=== PATIENT | male | born 1985 | race Hispanic/Latino ===

== ENCOUNTER 2016-04-24 18:33 | Emergency (ER) | payer OTHER ==
[~2016-04-24 18:33] MED LIST: AMOX500T2 PO; HYDR-4003 PO; LORA-302 PO; OMEP20TA24 PO; ONDA4TAB9 PO
[2016-04-24 18:39] VITALS: BP 143/118; PULSE 103; RESP 27; O2SAT 99
[2016-04-24 19:09] LABS: EOSINOPHILS % (AUTO) 4.2 % (0-5); MONOCYTES % (AUTO) 7.4 % (4-12); Mean Corpuscular Hemoglobin 27.3 pg (27.0-35.0); Mean Corpuscular Volume 80.7 fL (81-100); NEUTROPHILS % (AUTO) 65.4 % (40-74); Platelet Count 414 bil/L (150-400)
[2016-04-24 19:56] VITALS: BP 114/66; PULSE 64; RESP 15; O2SAT 96
--- NOTE | 2016-04-24 20:13 | ED.REPORT ---
HPI-General Illness Date of Service Apr 24, 2016 ED Provider: Jack Hinds MD Pt is a 30 y.o. male with hx of substance abuse who presents to the ED via EMS for drug overdose. Per EMS pt was found by group home passed out and bobbing his head. EMS administered Narcan en route. Upon arrival to the ED pt was alert and stating "I'm sick make this stop". Upon examination pt endorses to IV meth, heroin, and oxycodone use. He denies any suicidal ideation or intentional overdose. Nursing Notes Stated Complaint: POSSIBLE DRUG USE Chief Complaint: Substance Abuse Nursing Notes Reviewed: Yes Allergies: Coded Allergies: No Known Allergies (Verified Allergy, Unknown, 07/14/15) Scheduled Amoxicillin (Amoxicillin) 500 Mg Tablet 500 MG PO TID Omeprazole Magnesium (Prilosec Otc) 20 Mg Tablet.dr 20 MG PO DAILY Scheduled PRN Hydrocodone-Acetaminophen 5-325 mg (Hydrocodone-Acetaminophen 5-325 mg) 1 Each Tablet 1 TABLET PO Q4H PRN PRN For Pain Lorazepam (Ativan) 0.5 Mg Tablet 0.5 MG PO TID PRN PRN For Anxiety Ondansetron ODT (Zofran ODT) 4 Mg Tablet 4 MG PO Q4H PRN PRN For Nausea General Time Seen by MD: 18:39 Chief Complaint Other (Possible drug overdose) Hx Obtained From: Patient, EMS Unable to Obtain Hx: Patient condition Arrived By: Ambulance Sudden in Onset?: Yes Onset Occurred: Just prior to arrival Context of Onset: Amphetamine use Symptom Duration: Since onset Past Medical History Past Medical History MRSA otherwise healthy Past Surgical History denies Family History Noncontributory Smoking History Current Every Day Smoker Social History Alcohol Use: Denies alcohol use Drug Use: In recovery, Meth, Other Other Social History: Good social support, Occupation no work, no school, lives with girlfriend 11/2014 Ambulatory Status Independent Review of Systems Possible drug overdose Unable to Obtain ROS Patient condition Complete sys rev & neg: except as marked. Physical Exam Vital Signs Vital Signs Date Time Temp Pulse Resp B/P Pulse Ox O2 Delivery O2 Flow Rate FiO2 04/24/16 22:53 36.3 76 20 129/79 94 Room Air 04/24/16 22:34 76 20 129/79 94 Room Air 04/24/16 19:56 64 15 114/66 96 Room Air 04/24/16 18:39 36.3 103 27 143/118 99 Room Air Initial VS: Reviewed Head / Eyes: Atraumatic, Normocephalic Extremities: Vascular intact, Neuro intact Skin: Warm, Dry, No cyanosis Psychiatric: Mood/affect normal, Behavior normal, Normal thought content General/Constitutional: Awake, Alert Alertness: Positive: Somnolent Pt was difficult to arouse. Awake and alert once aroused. Respiratory / Chest: Atraumatic, Breath sounds = bilat, No respiratory distress Respiratory score of 13 Cardiovascular: Heart rate NL, Regular rhythm, Heart sounds NL, No gallop, No murmurs, No rubs, Peripheral circulation NL Abdomen: Atraumatic, Soft, No guarding, No rebound, No distention Neurologic: Oriented X3 Mental Status: Positive: Somnolent Interpretation & Diagnostics Lab Results Interpretation Result Diagram: 04/24/16 1844 04/24/16 1844 Test 04/24/16 18:44 White Blood Count 10.1th/mm3 (3.8-10.1) Red Blood Count 5.39mil/mm3 (4.40-5.80) Hemoglobin 14.7g/dL (13.8-17.2) Hematocrit 43.5% (41.0-50.0) Mean Corpuscular Volume 80.7fL (81-100) Mean Corpuscular Hemoglobin 27.3pg (27.0-35.0) Mean Corpuscular Hemoglobin Concent 33.8% (32.0-37.0) Red Cell Distribution Width 12.9% (12.3-15.4) Platelet Count 414bil/L (150-400) Neutrophils (%) (Auto) 65.4% (40-74) Lymphocytes (%) (Auto) 21.8% (14-46) Monocytes (%) (Auto) 7.4% (4-12) Eosinophils (%) (Auto) 4.2% (0-5) Basophils (%) (Auto) 1.0% (0-3) Sodium Level 135mEq/L (134-144) Potassium Level 3.8mEq/L (3.5-5.2) Chloride Level 96mEq/L (97-108) Carbon Dioxide Level 26mmol/L (18-29) Blood Urea Nitrogen 14mg/dL (6-20) Creatinine 0.90mg/dL (0.76-1.27) Estimat Glomerular Filtration Rate 105mL/min (>59) Glucose Level 94mg/dL (60-99) Calcium Level 9.3mg/dL (8.5-10.1) Total Bilirubin 0.6mg/dL (0.0-1.2) Aspartate Amino Transf (AST/SGOT) 19U/L (0-50) Alanine Aminotransferase (ALT/SGPT) 17U/L (0-44) Alkaline Phosphatase 78U/L (25-150) Total Protein 8.4g/dL (6.4-8.4) Albumin 4.0g/dL (3.4-5.0) Alcohol, Quantitative < 10mg/dL (0-10) Re-Eval/Medical Decision Med Decision/Clinical Course Pt is a 30 y.o. male with hx of substance abuse who presents to the ED via EMS for drug overdose. Per EMS pt was found by group home passed out and bobbing his head. EMS administered Narcan en route. Upon arrival to the ED pt was alert and stating "I'm sick make this stop". Upon examination pt endorses to IV meth, heroin, and oxycodone use. He denies any suicidal ideation or intentional overdose. Here in the emergency Department patient is quite somnolent though with stable vital signs and respiratory rate greater than 12. He was monitored here for approximately 4 hours during which his alertness improved. He did not require any further doses of Narcan. He declines mental health social worker evaluation or resources. He denies suicidal or homicidal ideation or any other associated ingestions. CBC and CMP were unremarkable. Follow up and return precautions were reviewed in detail with the patient and he was discharged in stable condition. Time of Eval: 22:37 Re-Evaluation/Progress Note: Pt is sleeping but arouseable. Discussed plan for discharge, pt udnerstands and agrees with plan. Discharge & Departure Primary Impression: Substance abuse Additional Impressions: Opiate abuse, episodic Methamphetamine abuse Altered mental status Altered mental status type: unspecified Qualified Code: R41.82 - Altered mental status, unspecified Disposition: Home Discharge Condition All VS Reviewed: Yes Additional Instructions: Thank you for seeking care at emergency room. You were seen today because he overdosed on heroin, oxycodone and methamphetamine. You were treated with Narcan and observed in the emergency department for 4 hours. You should follow-up with your primary doctor in the next week. We highly recommended that he stop using drugs. You should return to the ED immediately if you develop thoughts of harming herself/others, if you want help quitting drugs, if you have fevers, vomiting, cough, shortness of breath, chest pain, lightheadedness, weakness or any other concerning signs or symptoms. Thank you for letting us partake in your care today. Referrals: [facility] (PCP) [facility] Crit Care Except Billable Proc Time Spent: 105-134 minutes Services Performed: Patient management by me, Time spent at bedside, Reviewing test results, Reviewing imaging, Discussing patient care, Documentation in record, Time with fam/surrogate Scribe Attestation Portions of this note were transcribed by Renee Batista. I, Dr. Hinds personally performed the history, physical exam and medical decision-making; I reviewed and confirmed the accuracy of the information in the transcribed note. Signed by: Alisia Love, 04/24/16 and [id number]. copies to: [facility] Jack Hinds MD Apr 24, 2016 20:13 RENEE BATISTA Apr 24, 2016 20:24
[2016-04-24] MEDS ORDERED: Ammonia Aromatic Inhalant Ampule INHALATION ONE (20:16)
[2016-04-24 22:34] VITALS: BP 129/79; PULSE 76; RESP 20; O2SAT 94
[2016-04-24 22:53] VITALS: BP 129/79; PULSE 76; RESP 20; O2SAT 94
== END 2016-04-24 22:54 | disposition home or self-care (01) ==
LOC: SED 18:33
DX: F19.20 Other psychoactive substance dependence, uncomplicated (principal); F11.20 Opioid dependence, uncomplicated; F15.20 Other stimulant dependence, uncomplicated; R41.82 Altered mental status, unspecified; F17.200 Nicotine dependence, unspecified, uncomplicated; Z86.14 Personal history of Methicillin resistant Staphylococcus aureus infection
CPT/HCPCS: 36415; 80053; 81002; 85025; 99283; G0480

== ENCOUNTER 2016-05-16 05:04 | Inpatient (IN) | payer OTHER ==
[~2016-05-16] VITALS: Ht 177.8 cm; Wt 81.8 kg
[2016-05-16] VITALS (8 sets, daily range): BP systolic 91–125; BP diastolic 51–80; PULSE 80–112; RESP 16–32; O2SAT 85–100
[2016-05-16] MEDS ORDERED: Albuterol-Ipratropium 3 mL Inhalation Solution ONE (05:08)
[2016-05-16] MEDS ORDERED: Dexamethasone Inj 10 MG in 0.9% Sodium Chloride-Pha MIX 50 ML IV ONE (05:10)
[2016-05-16] MEDS ORDERED: Albuterol-Ipratropium 3 mL Inhalation Solution NEB ONE (05:10)
[2016-05-16] MEDS ORDERED: Albuterol 2.5 mg/3 mL Inhalation Solution NEB ONE (05:10)
[2016-05-16] MEDS ORDERED: 0.9% Sodium Chloride 1,000 ML IV ONE (05:12)
[2016-05-16] MEDS ORDERED: ALBU8.5H2 INHALATION (05:14)
--- NOTE | 2016-05-16 05:14 | ED.REPORT ---
HPI-Dyspnea / Wheezing Date of Service May 16, 2016 ED Provider: Jr Reyes MD Patient is a 30 year old male with a history of asthma who presents to the ED due to difficulty breathing that began several hours prior to arrival. History is limited as the patient is in respiratory distress on arrival to the ED. Patient admits to a recent productive cough with green sputum. His significant other reported that he did not have access to his asthma medications tonight. Patient has previously been seen in the ED for acute bronchospasms after smoking heroin. His significant other states that he now only smokes cigarettes , but he has not smoked any cigarettes today. His O2 sat is 85% on arrival to the ED. Nursing Notes Stated Complaint: DIFFICULTY BREATHING Chief Complaint: Respiratory Distress Nursing Notes Reviewed: Yes Allergies: Coded Allergies: No Known Allergies (Verified Allergy, Unknown, 05/16/16) Scheduled Albuterol HFA (Proair HFA) 8.5 Gm Hfa.aer.ad 2 PUFFS INHALATION Q4H General Time Seen by MD: 05:09 Chief Complaint Shortness of breath Hx Obtained From: Patient Unable to Obtain Hx: Patient condition (limited by the patient's respiratory distress) Arrived By: Walk-in Sudden in Onset?: No Onset Occurred: 1 - 4 hours ago Symptom Duration: Since onset Recent Healthcare: No recent doctor visit, No recent hospitalization Similar Sx Previous: Yes Past Medical History Past Medical History MRSA history of bronchospasm after smoking heroin heroin overdose Reports: Asthma Past Surgical History denies Family History Noncontributory Smoking History Current Every Day Smoker Social History Alcohol Use: Denies alcohol use Drug Use: Meth, Other (heroin) Other Social History: Good social support, Occupation no work, no school, lives with girlfriend 11/2014 Ambulatory Status Independent Review of Systems Unable to Obtain ROS Patient condition (limited by respiratory distress) Respiratory: Reports: Prod cough, green, Shortness of breath Physical Exam Initial Vital Signs Vital Signs (First) Date Time Temp Pulse Resp B/P Pulse Ox O2 Delivery O2 Flow Rate FiO2 05/16/16 05:11 36.0 112 32 125/80 85 Room Air Initial VS: Reviewed Head / Eyes: Atraumatic, Normocephalic, PERRL Abdomen / GI: Soft, Non-tender Extremities: Vascular intact, Neuro intact, No swelling Skin: Warm, Dry, No cyanosis Neurologic: Alert, Nonfocal General/Constitutional: Awake, Alert Distress / Hydration: Positive: Dehydration mild, Distress moderate, Distress severe only able to shake his head yes or no when asked questions Neck: Supple Resp Distress / Stridor: Positive: Resp distress severe Diminished Breath Sounds: Positive: Absent bilateral (nearly absent) prolonged expiratory phase pursed lip breathing maximal effort of breathing Heart Rate / Rhythm: Positive: Tachycardia heart is inaudible ENT: Airway patent Mouth: Positive: Mucous membranes dry Interpretation & Diagnostics Lab Results Interpretation Result Diagram: 05/16/16 0525 05/16/16 0525 Test 05/16/16 05:25 White Blood Count 19.2th/mm3 (3.8-10.1) Red Blood Count 5.57mil/mm3 (4.40-5.80) Hemoglobin 14.9g/dL (13.8-17.2) Hematocrit 44.6% (41.0-50.0) Mean Corpuscular Volume 80.1fL (81-100) Mean Corpuscular Hemoglobin 26.8pg (27.0-35.0) Mean Corpuscular Hemoglobin Concent 33.4% (32.0-37.0) Red Cell Distribution Width 13.5% (12.3-15.4) Platelet Count 417bil/L (150-400) Neutrophils (%) (Auto) 71.1% (40-74) Lymphocytes (%) (Auto) 10.2% (14-46) Monocytes (%) (Auto) 6.4% (4-12) Eosinophils (%) (Auto) 11.3% (0-5) Basophils (%) (Auto) 0.6% (0-3) Sodium Level 139mEq/L (134-144) Potassium Level 4.0mEq/L (3.5-5.2) Chloride Level 100mEq/L (97-108) Carbon Dioxide Level 25mmol/L (18-29) Blood Urea Nitrogen 13mg/dL (6-20) Creatinine 0.90mg/dL (0.76-1.27) Estimat Glomerular Filtration Rate 105mL/min (>59) Glucose Level 72mg/dL (60-99) Calcium Level 9.6mg/dL (8.5-10.1) Magnesium Level 2.1mg/dL (1.6-2.6) Total Bilirubin 0.3mg/dL (0.0-1.2) Aspartate Amino Transf (AST/SGOT) 22U/L (0-50) Alanine Aminotransferase (ALT/SGPT) 19U/L (0-44) Alkaline Phosphatase 94U/L (25-150) Troponin T 0.010ug/L (0.0-0.011) Total Protein 8.5g/dL (6.4-8.4) Albumin 3.9g/dL (3.4-5.0) Hold Hewitt Top Tube Received (Received) X-Ray Chest Interpretation Chest Xray Interpretation: Impression: Air trapping. No acute cardiopulmonary process. View: Portable Interpretation / Wet Read by: Wet read ED physician Re-Eval/Medical Decision Med Decision/Clinical Course 30-year-old with asthma and continued cigarette abuse as well as intermittent substance abuse presents in significant respiratory distress with an asthma exacerbation. He has run out of his rescue medicines and had not to take at home. He has not smoked at all today, but has smoked cigarettes up through yesterday. He denies any current drug use. He has a history of heroin and methamphetamine abuse and episodes of bronchospasm associated with smoked heroin. He is improving but still showing considerable work of breathing and appears fatigued. He is not stable for discharge at this time is admitted instead to the medicine service for ongoing abscess and steroids. Transported in fair condition improved from intake. Source of Hx: Old records Re-Evaluation/Progress #1: Time of Eval: 05:29 Re-Evaluation/Progress Note: Rechecked the patient. He remains on the breathing treatment. When asked if he is improved, the patient nods in agreement. Re-Evaluation/Progress #2: Time of Eval: 06:02 Re-Evaluation/Progress Note: Rechecked the patient. He remains on the breathing treatment. Patient continues to be very wheezy but has improved. He will be admitted to the hospital for further care. He nods his head in agreement. Consultation : Referral / Consult Name: Randy Moore MD Consulted With: Hospitalist Call Returned at: 06:07 Casting Room Operator: Will see patient, Agrees with eval, Agrees with plan, Accepts admit Note: Spoke with Dr. Moore, hospitalist, who agrees to accept admit. Counseled Regarding: Diagnosis, Lab results, Need for admission Discharge & Departure Impression: Primary Impression: Asthma exacerbation Additional Impressions: Respiratory distress Opiate abuse, episodic Disposition: ADMITTED TO HOSPITAL Discharge Condition All VS Reviewed: Yes Condition: Stable Scribe Attestation Portions of this note were transcribed by Kat Lay. I, Dr. Reyes personally performed the history, physical exam and medical decision-making; I reviewed and confirmed the accuracy of the information in the transcribed note. Signed by: Alisia Qureshi, 05/16/2016 0607 Jr Reyes MD May 16, 2016 05:14 Kat Lay May 16, 2016 05:21
[2016-05-16] MEDS ORDERED: Magnesium Sulf 2 Gm/50mL Water 2 GM in IV Premix 1 EACH IV ONE (05:15)
[2016-05-16 05:32] LABS: BASOPHILS % (AUTO) 0.6 % (0-3); EOSINOPHILS % (AUTO) 11.3 % (0-5); MONOCYTES % (AUTO) 6.4 % (4-12); Mean Corpuscular Hemoglobin 26.8 pg (27.0-35.0); Mean Corpuscular Volume 80.1 fL (81-100); NEUTROPHILS % (AUTO) 71.1 % (40-74); Platelet Count 417 bil/L (150-400)
[2016-05-16 05:55] LABS: TROPONIN T 0.01 ug/L (0.0-0.011)
[2016-05-16 06:07] LABS: Magnesium 2.1 mg/dL (1.6-2.6)
[2016-05-16] MEDS ORDERED: Alum-Mag Hydrox-Simeth 30 mL Suspension PO PRN (06:10)
[2016-05-16] MEDS ORDERED: Ondansetron 2 mg/mL 2 mL Inj IVPUSH PRN (06:10)
--- NOTE | 2016-05-16 06:27 | ABG ---
DateTimeAnalyzed 06:24:00 -_ pH ____7.357 - 7.350 7.450 pCO2 ___46.5__ -mmHg 35.0 45.0 pO2 147 -mmHg 69.0 116 HCO3- ___25.4__ -mmol/L 22.0 26.0 ABE ____0.1__ -mmol/L -2.0 2.0 tHb ___13.6__ -g/dL O2Hb ___97.7__ -% COHb ____0.5__ -% MetHb ____0.7__ -% sO2 ___98.9__ -% 25.0 FIO2 ___80.0__ -% Drawn By AF - Date/Time Notified____ 06:26:00 -_ Notified By AF - Notified Whom ___Dr. Reyes - B 755 -mmHg tO2 ___19.0__ -Vol% OrderingPhysicianInitials CR - Vijay test _Positive -
[2016-05-16] MEDS ORDERED: Albuterol 2.5 mg/3 mL Inhalation Solution NEB PRN (07:00)
[2016-05-16] MEDS: Lactated Ringer's 1,000 ML IV SCH ×2 (07:49→15:23)
[2016-05-16] MEDS: MethylprednisoLONE Sodium Succinate 40 mg/mL Inj IVPUSH SCH ×2 (07:49→16:34)
[2016-05-16 08:06] LABS: APPEARANCE,URINE HAZY (CLEAR,HAZY); COLOR,URINE YELLOW (YELLOW); OCCULT BLOOD,URINE TRACE (NEGATIVE); UROBILINOGEN,URINE NORMAL (NORMAL)
--- NOTE | 2016-05-16 08:47 | DRSVH ---
PROCEDURE: X-RAY CHEST ONE VIEW, PORTABLE ([id number]) INDICATIONS: SOB TECHNIQUE: One view of the chest was acquired. COMPARISON: [facility], CR, XR CHEST 1VW (PORTABLE), 07/14/2015, 11:53. FINDINGS: Surgical changes and devices: None. Lungs and pleura: No pleural effusions or pneumothorax. Lungs are clear. Mediastinum: Mediastinal contours appear normal. Heart size is normal. Bones and chest wall: No suspicious bony lesions. Overlying soft tissues appear unremarkable. IMPRESSION: No acute cardiopulmonary disease. Dictated by: Jones Sharpe [facility] Interpreted: Destiny Jhaveri MD on 05/16/2016 at 8:46 Transcribed by: PB on 05/16/2016 at 8:47 Approved by: Destiny Jhaveri MD, PhD on 05/16/2016 at 18:04
[2016-05-16] MEDS ORDERED: Polyethylene Glycol (PEG) 17 Gm Powder PO PRN (10:30)
[2016-05-16] MEDS ORDERED: hydrOXYzine Inj 25 MG/1 mL SDV IM PRN (11:30)
[2016-05-16] MEDS ORDERED: hydrOXYzine Inj 50 MG/1 mL SDV IM PRN (12:00)
[2016-05-16] MEDS: cloNIDine 0.1 mg Tablet PO PRN (12:00)
[2016-05-16] MEDS ORDERED: Buprenorphine 2 mg SL Tablet SL ONE (12:00)
[2016-05-16] MEDS ORDERED: hydrOXYzine Pamoate 25 mg Capsule PO PRN (12:17)
[2016-05-16] MEDS: Albuterol-Ipratropium 3 mL Inhalation Solution NEB SCH ×3 (12:34→20:02)
--- NOTE | 2016-05-16 16:14 | PCM.HPMED ---
Subjective Date of Service May 16, 2016 Primary Provider: Admitting Physician: Randy Moore MD Primary Care Physician: Astrid Attending Physician: Randy Moore MD Admit Status: From the Emergency Department Chief Complaint: shortness of breath History of Present Illness: Norm Hayes is a 30-year-old man with past medical history remarkable for polysubstance abuse as well as asthma who presents to the [facility] emergency Department with acute shortness of breath. Notes from the ED indicate that this patient had significant dyspnea for several hours. The patient states that over the last several days he had been coughing up green sputum. He denies any fever or chills, chest pain, sore throat or general sense of being sick. The patient denies any burning on urination, any joint pain , or discharge from his penis. The patient initially denied taking any substances prior to coming into the emergency department. After administering Narcan due to patient's somnolence the patient admitted to taking oxycodone recently. Records indicate that on 04/24/2016 he was seen for an opiate overdose. And last year he had an asthma exacerbation with severe bronchospasms after smoking heroin. The patient continually denies drinking alcohol. On toxicology screen not performed in the emergency department the patient tested positive for opiates and amphetamines. Review of Systems: A comprehensive review of systems was attempted to be obtained given poor patient cooperation to exam and all are negative except for what is included in the HPI. Allergies Coded Allergies: No Known Allergies (Verified Allergy, Unknown, 05/16/16) Home Medications Albuterol HFA (Proair HFA) which he received from a friend [facility] MRSA history of bronchospasm after smoking heroin heroin overdose Asthma Surgical History denies Family History patient would not provide information Social History Occupation: not currently working Hx Alcohol Use: No Hx Substance Use: No Hx Tobacco Use: Yes Smoking Status: Current Every Day Smoker Living Arrangement: Other (patient is reportedly sleeping on several different friends' couches) Exam Vital Signs Vital Sign - Last Date Time Temp Pulse Resp B/P Pulse Ox O2 Delivery O2 Flow Rate FiO2 05/16/16 08:31 100 24 100 Aerosol Mask 7.00 05/16/16 06:50 36.8 122/70 Intake and Output 05/15/16 05/15/16 05/16/16 Cumulative From/Thru 15:00 23:00 07:00 05/16/16 05:11 - 05/16/16 06:09 Intake Total 1000 ml 1000 ml Balance 1000 ml 1000 ml Intake IV Total 1000 ml 1000 ml Exam Gen.: Somnolent young male lying in no acute distress in bed Eyes: Pupils equal round and reactive to light, anicteric sclera, noninjected conjunctiva Neck: Trachea midline, no JVD, no notable thyromegaly Cardiovascular: Regular rate and rhythm, S1 and S2 present, no S3 or S4, no murmurs rubs or gallops noted Lungs: Decreased air movement in all lung moeller, Clear to auscultation bilaterally without any course lung sounds and no wheezing noted Abdomen: NABS, soft, nontender, nondistended Extremities: No cyanosis, clubbing, or edema noted, abscess 4cm with 3 sinus drainage sites and surrounding erythema on plantar surface of left foot Skin: Numerous tattoos, warm and dry, no rashes noted : No Mckeon in place Neuro: Somnolent, significantly delayed response but answering questions appropriately, Psych: Flat affect and depressed mood Lab and Diagnostics Result Diagram: 05/16/1652405/16/16524 X-Rays, CTs and MRIs X-RAY CHEST ONE VIEW, PORTABLE ([id number]) IMPRESSION: No acute cardiopulmonary disease. Dictated by: Jones AMANDA Interpreted: Destiny Jhaveri MD on 05/16/2016 at 8:46 Transcribed by: PB on 05/16/2016 at 8:47 Additional Diagnostics: ABG DateTimeAnalyzed 06:24:00 -_ pH ____7.357 - 7.350 7.450 pCO2 ___46.5__ -mmHg 35.0 45.0 pO2 147 -mmHg 69.0 116 HCO3- ___25.4__ -mmol/L 22.0 26.0 Assessment & Plan Norm Hayes 30-year-old man with past medical history remarkable for polysubstance abuse, and asthma exacerbation secondary to smoking recreational drugs who presents to [facility] emergency Department with acute worsening shortness of breath. 1. Acute opiate intoxication, present on admission, acute - ED report states that the patient was unable to give responses due to his severe shortness of breath - Upon arriving to the floor the patient was no longer dyspneic but he was severely somnolent - The patient denies smoking any recreational drugs at this time however review of [facility] records indicate the patient has presented with asthma exacerbations from smoking heroin - Urine tox screen ordered shows both amphetamines and heroin - Narcan given resulted in acute opiate withdrawals with severe abdominal pain - Clonidine 0.1 mg every hour when necessary - Hydroxyzine IM has been converted to by mouth when necessary for patient comfort - Baclofen by mouth for muscle cramps and abdominal discomfort - Buprenorphine induction for opiate withdrawals - Encourage cessation of drugs and refer to [facility] for possible treatment 2. sepsis likely left foot abscess, present on admission, ongoing - SIRS positive with tachycardia and tachypnea at admission originally thought to be secondary to dyspnea - left foot is expected to be a source of leukocytosis 19k - noted on left plantar surface - Vancomycin and Ceftriaxone - blood and tissue cultures pending - consider general surgery consult on 05/17 if white count rising 3. Acute asthma exacerbation, present on admission - Likely secondary to inhalation of heroin and/or amphetamine smoke - Solu-Medrol 80 mg every 8 hours - DuoNeb's 4 times a day while awake - Albuterol nebulizer every 2 hours as needed for shortness of breath - Reiterate importance of cessation of smoking 4 Acute hypoxic and hypercapnic respiratory failure, present on admission, stable - secondary to asthma above - noted in the emergency department records - patient has been monitored in the [facility] with O2 saturation all day without desaturation 5. Leukocytosis, present on admission, acute - No fever or chills, SIRS criteria negative - Procalcitonin 0.04 makes infection less likely - Labs were drawn likely only minutes before Solu-Medrol dosing making increased due to steroids less likely - Continue to monitor for signs of infection likely stress reaction with recent amphetamine use and shortness of breath 6. Polysubstance abuse, present on admission, acute on chronic - Narcan given on floor with reversal of somnolence indicate an acute intoxication - Patient will have limited visitors and have his personal belongings locked - Encourage cessation and referral to [facility] - HIV and hepatitis panel ordered and pending DVT prophylaxis: Subcutaneous heparin GI prophylaxis: Not indicated at this time Antiemetics available when necessary The patient was admitted to inpatient stay with expected length of stay greater than to midnight given his initial presentation the likely diagnosis as well as possible complications. Pain Evaluation: Adequate Pain Control GI Prophylaxis: Not indicated VTE Prophylaxis Indicated: Meets Criteria for Anticoag Therapy VTE Prophylaxis: Sub-Q Heparin (Unfractionated) Resuscitation Status: CPR: Attempt Resuscitation Attending Statement The patient was seen and examined together with Dr. Bay on 05/16/2016 and I agree with the history, exam and plan as outlined in the note above. . Angus Bay DO May 16, 2016 09:46 Wyatt Ernandez MD May 20, 2016 08:51
[2016-05-16] MEDS: Heparin 5,000 Unit/mL Inj SUBQ SCH (16:34)
--- NOTE | 2016-05-16 17:43 | NUR ---
LOC/Pain/Respiratory This AM: Patient would fall asleep during mid conversation/would not follow commands but would waken to touch and voice. 0.3mg IV Narcan administered, patient still drowsy at times but generally more alert. Reported significant abdominal pain and nausea post 0.3mg IV narcan administration this AM -- accompanied by significant diaphoresis--no vomiting or diarrhea. Administered Vistaril IM, PO Clonidine, PO Baclofen, Subutex sublingual in addition to 8mg IV Zofran--patient appeared much more comfortable. Weaned to 2L NC then down to RA with SPO2 at 94%. RT following, receiving q4 neb treatments. Sputum cup at bedside, per patient producing green sputum [employer]. Denies chest pain, no symptoms of cardiac distress. Tele DC'd, HR 90s-120s with activity. BP within normal limits, distal pulses palpable.
[2016-05-16] MEDS: Vancomycin Dose per Pharmacist XX SCH (21:45)
[2016-05-16] MEDS ORDERED: Vancomycin Inj 1,750 MG in 0.9% Sodium Chloride 500 ML IV ONE (22:00)
[2016-05-17] VITALS (12 sets, daily range): BP systolic 101–120; BP diastolic 57–70; PULSE 63–95; RESP 15–28; O2SAT 88–99
--- NOTE | 2016-05-17 | NUR ---
[place] [facility] [place] [facility] [place] All belongings taken with pt. No telemetry. Pt on 3.5L via NC to maintain SP02 at 96%. Report given to ALEX SANDOVAL.
[2016-05-17] MEDS ORDERED: 0.9% Sodium Chloride 250 ML ONE ×2 (00:31→23:43)
--- NOTE | 2016-05-17 00:37 | NUR ---
Transfer: Pt transferred to room 3013 from [facility] around 0025. No signs of distress, pt resting with eyes closed. 3.5 L O2, SL, seizure pads in place.
[2016-05-17] MEDS: cefTRIAXone Inj 2,000 MG in Dextrose 5% Minibag Plus 50 ML IV SCH ×2 (00:41→23:54)
[2016-05-17] MEDS: MethylprednisoLONE Sodium Succinate 40 mg/mL Inj IVPUSH SCH ×2 (01:28→16:08)
[2016-05-17] MEDS: Heparin 5,000 Unit/mL Inj SUBQ SCH ×3 (01:28→15:31)
--- NOTE | 2016-05-17 02:08 | PCM.CONPHA ---
Subjective Date of Service: May 17, 2016 Requesting Provider: Talisha Moralez DO shortness of breath Reason for Pharmacy Consult: Vancomycin Dosing Objective Vital Signs Date Time Temp Pulse Resp B/P Pulse Ox O2 Delivery O2 Flow Rate FiO2 05/17/16 01:36 Supplement Oxygen 05/17/16 00:58 107/61 05/16/16 20:26 36.5 92 24 91/51 96 Nasal Cannula 4.50 05/16/16 20:26 Supplement Oxygen 05/16/16 16:49 82 20 94 Room Air 05/16/16 16:21 36.7 92 16 107/70 99 05/16/16 08:31 100 24 100 Aerosol Mask 7.00 05/16/16 07:50 Supplement Oxygen 05/16/16 07:11 102 05/16/16 06:50 36.8 88 18 122/70 100 Aerosol Mask 05/16/16 05:20 80 31 100 Room Air 05/16/16 05:11 36.0 112 32 125/80 85 Room Air Intake and Output 05/15/16 05/16/16 05/17/16 00:00 00:00 00:00 Intake Total 1320 ml Balance 1320 ml Weight (Kilograms): 81.82 Height (Feet): 5 Height (Inches): 10 Test 05/16/16 05:25 05/16/16 07:31 05/16/16 11:45 05/17/16 00:10 White Blood Count 19.2th/mm3 (3.8-10.1) Red Blood Count 5.57mil/mm3 (4.40-5.80) Hemoglobin 14.9g/dL (13.8-17.2) Hematocrit 44.6% (41.0-50.0) Mean Corpuscular Volume 80.1fL (81-100) Mean Corpuscular Hemoglobin 26.8pg (27.0-35.0) Mean Corpuscular Hemoglobin Concent 33.4% (32.0-37.0) Red Cell Distribution Width 13.5% (12.3-15.4) Platelet Count 417bil/L (150-400) Neutrophils (%) (Auto) 71.1% (40-74) Lymphocytes (%) (Auto) 10.2% (14-46) Monocytes (%) (Auto) 6.4% (4-12) Eosinophils (%) (Auto) 11.3% (0-5) Basophils (%) (Auto) 0.6% (0-3) Sodium Level 139mEq/L (134-144) Potassium Level 4.0mEq/L (3.5-5.2) Chloride Level 100mEq/L (97-108) Carbon Dioxide Level 25mmol/L (18-29) Blood Urea Nitrogen 13mg/dL (6-20) Creatinine 0.90mg/dL (0.76-1.27) Estimat Glomerular Filtration Rate 105mL/min (>59) Glucose Level 72mg/dL (60-99) Calcium Level 9.6mg/dL (8.5-10.1) Magnesium Level 2.1mg/dL (1.6-2.6) Total Bilirubin 0.3mg/dL (0.0-1.2) Aspartate Amino Transf (AST/SGOT) 22U/L (0-50) Alanine Aminotransferase (ALT/SGPT) 19U/L (0-44) Alkaline Phosphatase 94U/L (25-150) Troponin T 0.010ug/L (0.0-0.011) Total Protein 8.5g/dL (6.4-8.4) Albumin 3.9g/dL (3.4-5.0) Procalcitonin 0.04ng/mL (0.00-0.08) Urine Color Yellow (YELLOW) Urine Appearance Hazy (CLEAR,HAZY) Urine pH 6.0 (5.0-8.0) Urine Specific [place] 1.010 (1.003-1.035) Urine Protein Negativemg/dL (NEG,TRACE) Urine Glucose (UA) Negativemg/dL (NEGATIVE) Urine Ketones Negativemg/dL (NEGATIVE) Urine Occult Blood Trace (NEGATIVE) Urine Nitrite Negative (NEGATIVE) Urine Bilirubin Negative (NEGATIVE) Urine Urobilinogen Normalmg/dL (NORMAL) Urine Leukocyte Esterase Trace (NEGATIVE) Urine RBC 0-2/hpf (0-2) Urine WBC 6-10/hpf (0-5) Urine Epithelial Cells Occasional/hpf (NONE-MOD) Urine Crystals None seen (NONE SEEN) Urine Bacteria Few/hpf (NONE-FEW) Urine Hyaline Casts None/lpf (NONE) Urine Granular Casts None seen (NONE SEEN) Urine Waxy Casts None seen (NONE SEEN) Urine Red Blood Cell Casts None seen (NONE SEEN) Urine White Blood Cell Casts None seen (NONE SEEN) Urine Mucus None seen (None Seen) Urine Trichomonas None seen (NONE SEEN) Urine Yeast None (NONE SEEN) Urinalysis Comment None Urine Culture Reflexed Indicated Urine Opiates Screen Positive Urine Methadone Screen Negative Urine Barbiturates Screen Negative Urine Amphetamines Screen Positive Urine Benzodiazepines Screen Negative Urine Cocaine Metabolite Screen Negative Urine Cannabinoids Screen Negative Urine Legionella pneumophilia Ag Negative (Negative) Hepatitis C Comment . Hold [employer] [place] Top Tube Received (Received) Hold [place] Top Tube Received (Received) Assessment/Plan Assessment/Plan A: * Vancomycin dosing by pharmacy requested by Dr. Moralez for 30 y/o man with an ulcer on his foot * He is also being started on ceftriaxone * Estimated CrCl is 120 mL/min (Cockcroft & Gault) * Estimated vancomycin half-life is 7 hours and estimated Vd is 57 liters P: * One vancomycin loading dose of 1750 mg IV * Continue with vancomycin 1500 mg IV every 12 hours * Target vancomycin trough range of 10 - 15 mcg/mL for now, increase target if the patient does not improve * Drawing a trough level prior to the fourth dose Thank you. Pharmacy will continue to follow this patient. Naomy Lopez, PharmD Naomy Lopez May 17, 2016 02:08
[2016-05-17 03:09] LABS: Hepatitis A Antibody IgM Negative (Negative); Hepatitis B Core Antibody IgM Negative (Negative)
--- NOTE | 2016-05-17 04:54 | NUR ---
Uneventful Night: Pt has had an uneventful night, no c/o pain, chest pain or SOB. Pt removed oxygen NC, sating 91-92%, will continue to spot check throughout the night. Pt passive, not wanting to interact with staff, slept most of the night.
[2016-05-17 06:19] LABS: BASOPHILS % (AUTO) 0.1 % (0-3); EOSINOPHILS % (AUTO) 0 % (0-5); MONOCYTES % (AUTO) 1.6 % (4-12); Mean Corpuscular Hemoglobin 27.7 pg (27.0-35.0); Mean Corpuscular Volume 81.3 fL (81-100); NEUTROPHILS % (AUTO) 93.5 % (40-74); Platelet Count 388 bil/L (150-400)
[2016-05-17] MEDS: Multivit-Miner-Folic Acid-Iron Tablet PO SCH (07:40)
[2016-05-17] MEDS: Vancomycin Dose per Pharmacist XX SCH (07:41)
[2016-05-17] MEDS: Albuterol-Ipratropium 3 mL Inhalation Solution NEB SCH ×4 (07:44→21:00)
[2016-05-17] MEDS: cloNIDine 0.1 mg Tablet PO PRN (09:27)
[2016-05-17] MEDS: Vancomycin Inj 1,500 MG in 0.9% Sodium Chloride 500 ML IV SCH (10:48)
[2016-05-17] MEDS ORDERED: fentaNYL-PF 50 mCg/mL 2 mL Inj ONE (11:39)
[2016-05-17] MEDS ORDERED: Propofol 10,000 mCg/mL 20 mL Inj ONE (11:39)
--- NOTE | 2016-05-17 13:13 | DRSVH ---
PROCEDURE: CT FOOT LEFT WITH CONTRAST ([id number]) INDICATIONS: 30-year-old male with possible left foot abscess. TECHNIQUE: After the administration of intravenous contrast, 3 mm axial sections acquired of the left foot, with coronal and sagittal reformats. For radiation dose reduction, the following was used: automated ex posure control, adjustment of mA and/or kV according to patient size. COMPARISON: None available. FINDINGS: Image quality: Excellent. Bones: No fractures or dislocations. No bony destruction or erosions. No suspicious lytic or blastic bony lesions. No hindfoot coalitions. No premature joint degeneration. Soft tissues: No tibiotalar joint effusion. The Achilles tendon appears intact. No rim-enhancing flui d collections to suggest abscess. No localized soft tissue swelling. IMPRESSION: Normal left foot contrast-enhanced CT. No evidence for left foot abscess. Dictated by: Rajat Raman M.D. on 05/17/2016 at 13:06 Approved by: Rajat Raman M.D. on 05/17/2016 at 13:11
--- NOTE | 2016-05-17 14:44 | NUR ---
LOC Patient alert and oriented X3. Patient remained somnolent today. Patient answered questions when asked, but periodically had to be asked two or three times before he would answer questions. Patient didn't always open eyes to talk with staff. Patient closet was locked today by security and explained to patient why and why he is to have limited visitors.
--- NOTE | 2016-05-17 15:25 | NUR ---
Social Work-attempted CD assessment: Data:EMR reviewed. Pt is a 30 y/o male who was admitted on 05/16/16 for asthma per H&P. Pt's insurance is [employer] and PCP is not listed. EMR Reviewed. SW attempted to see pt today, but pt sleeping soundly. SW able to get pt to wake up, but then pt quickly fell right back asleep. Pt is not appropriate today for CD assessment. SW to also follow up regarding advanced directive. SW will continue to follow. Assessment:pt who would benefit from CD assessment. Plan:SW to follow up when appropriate to complete CD assessment. SW will continue to follow. TANESHA Quiroga
--- NOTE | 2016-05-17 15:58 | PCM.PNMED ---
Subjective Date of Service May 17, 2016 Subjective Uneventful overnight. Patient complained of generalized abdominal pain this morning. He has been having this since being given Narcan he says. Reports it does improve with Clonidine. Denies any fevers, CP, or n/v. Reports his breathing has improved but still feels somewhat short of breath. His foot has also been increasingly tender. He reports he may have stepped on something 4-5 days ago. Denies any IV drug usage. Reports he did use meth and opiates the other day. Exam Vital Signs Vital Sign - Last Date Time Temp Pulse Resp B/P Pulse Ox O2 Delivery O2 Flow Rate FiO2 05/17/16 04:35 36.8 63 18 112/61 91 Room Air 05/16/16 20:26 4.50 Intake and Output 05/16/16 05/16/16 05/17/16 Cumulative From/Thru 15:00 23:00 07:00 05/16/16 05:11 - 05/17/16 06:06 Intake Total 320 ml 400 ml 1720 ml Output Total 0 ml 0 ml Balance 320 ml 400 ml 1720 ml Intake Oral 400 ml 400 ml IV Total 320 ml 1320 ml Output Urine Total 0 ml 0 ml Exam Gen.: Well-developed young male who is somnolent while laying in bed, appears to be in mild pain Eyes: Pupils equal round and reactive to light, anicteric sclera, Neck: Soft, nontender Cardiovascular: Regular rate and rhythm, no murmurs noted Lungs: Mild end expiratory wheezing, mild rhonchi noted. Normal respiratory effort while on 2 L NC Abdomen: Mildly tender to palpation diffusely, soft, nondistended, no masses palpated but no rashes noted Extremities: No cyanosis, clubbing, or edema noted, abscess 4cm with 3 sinus drainage sites and surrounding erythema on plantar surface of left foot Skin: Numerous tattoos, warm and dry, no rashes noted : No Mckeon in place Neuro: Somnolent, significantly delayed response but answering questions appropriately, Psych: Flat affect and depressed mood IVs and Medications Medications Reviewed: Medications were reviewed in detail Lab and Diagnostics Result Diagram: 05/17/16 0600 05/17/16 0600 X-Rays, CTs and MRIs X-RAY CHEST ONE VIEW, PORTABLE ([id number]) IMPRESSION: No acute cardiopulmonary disease. Dictated by: Jones AMANDA Interpreted: Destiny Jhaveri MD on 05/16/2016 at 8:46 Transcribed by: PB on 05/16/2016 at 8:[address] with con IMPRESSION: Normal left foot contrast-enhanced CT. No evidence for left foot abscess. Additional Diagnostics ABG DateTimeAnalyzed 06:24:00 -_ pH ____7.357 - 7.350 7.450 pCO2 ___46.5__ -mmHg 35.0 45.0 pO2 147 -mmHg 69.0 116 HCO3- ___25.4__ -mmol/L 22.0 26.0 Assessment & Plan Norm Hayes 30-year-old man with past medical history remarkable for polysubstance abuse, and asthma exacerbation secondary to smoking recreational drugs who presents to [facility] emergency Department with acute worsening shortness of breath and left foot abscess #. acute Left foot abscess, present on admission, ongoing - SIRS positive with tachycardia and tachypnea at admission originally thought to be secondary to dyspnea - left foot is expected to be a source of leukocytosis 19k - noted on left plantar surface, although not well seen on left foot CT - Vancomycin and Ceftriaxone - blood and tissue cultures pending - WBC elevated to 30 with Neutrophils 90%, this is quite a large jump despite just initiating steroids - Podiatry was consulted and is planning to bring patient to OR for I&D. #. Acute asthma exacerbation, present on admission - Likely secondary to inhalation of heroin and/or amphetamine smoke - Solu-Medrol initiated on admission, will continue to quick taper down to oral Prednisone. - DuoNeb's 4 times a day while awake - Albuterol nebulizer every 2 hours as needed for shortness of breath - Reiterate importance of cessation of smoking #. Acute opiate intoxication, present on admission, acute - ED report states that the patient was unable to give responses due to his severe shortness of breath - Upon arriving to the floor the patient was no longer dyspneic but he was severely somnolent - Urine tox screen ordered shows both amphetamines and heroin - Narcan given resulted in acute opiate withdrawals with severe abdominal pain - Clonidine 0.1 mg every hour when necessary - Hydroxyzine IM has been converted to by mouth when necessary for patient comfort - Baclofen by mouth for muscle cramps and abdominal discomfort - Will consider Buprenorphine induction for opiate withdrawal if patient is compliant - Encourage cessation of drugs and refer to [facility] for possible treatment # Acute hypoxic and hypercapnic respiratory failure, present on admission, stable - secondary to asthma exacerbation as above - noted in the emergency department records he was hypoxic and hypercapneic - patient has been monitored in the PCC with O2 saturation all day without desaturation #. Leukocytosis, present on admission, acute - No fever or chills, SIRS criteria negative - Procalcitonin 0.04 makes infection less likely - Labs were drawn likely only minutes before Solu-Medrol dosing making increased due to steroids less likely - Continue to monitor for signs of infection likely stress reaction with recent amphetamine use and shortness of breath #. Polysubstance abuse, present on admission, acute on chronic - Narcan given on floor with reversal of somnolence indicate an acute intoxication - Patient will have limited visitors and have his personal belongings locked - Encourage cessation and referral to [facility] - HIV and hepatitis panel ordered and pending DVT prophylaxis: Subcutaneous heparin GI prophylaxis: Not indicated at this time Dispo: Will likely require 2-3 more days for stabilization and antibiotics. Pain Evaluation: Pain not Controlled GI Prophylaxis: Not indicated VTE Prophylaxis: Sub-Q Heparin (Unfractionated) Resuscitation Status: CPR: Attempt Resuscitation Attending Statement The patient was seen and examined independently on 05/17/2016 and case discussed with Dr. Angeles , I agree with the history, exam and plan as outlined in the note above. Bud Angeles DO May 17, 2016 07:42 Garret Parrish MD May 17, 2016 19:08
[2016-05-17] MEDS: Lactated Ringer's 1,000 ML IV SCH (16:10)
--- NOTE | 2016-05-17 16:15 | PCM.HPANE ---
Patient Data Surgeon Admitting Provider:Randy Moore MD Attending Provider:Randy Moore MD Primary Care Physician:Nopmarisol Other Provider: Reason for Visit Asthma Exacerbation ASTHMA EXACERBATION Ht/WT & BMI Height (Feet): 5 Height (Inches): 10 Weight (Kilograms): 81.82 Body Mass Index Allergies Coded Allergies: No Known Allergies (Verified Allergy, Unknown, 05/16/16) Past Anesthesia History Anesthesia History: Denies:: Anesthesia Reactions Diabetes History Hx Diabetes?: No MRSA MRSA: No Medications Reported Medications Albuterol HFA (Proair HFA)8.5 Gm Hfa.aer.ad2 Puffs INHALATION Q4H PRN For Shortness of Breath 05/16/16 Discontinued Scripts Hydrocodone-Acetaminophen 5-325 mg 1 Each Tablet1 Tablet PO Q4H PRN For Pain # 20 TABLET Ref 0 Prov:Alejandra Worley MD 06/01/15 Amoxicillin 500 Mg [id number] Mg PO TID #21 TABLET Ref 0 Prov:Aljeandra Worley MD 06/01/15 Ondansetron ODT (Zofran ODT)4 Mg Tablet4 Mg PO Q4H PRN For Nausea #20 TABLET Prov:Skyler Monsalve DO 04/04/15 Lorazepam (Ativan)0.5 Mg Tablet0.5 Mg PO TID PRN For Anxiety #20 TABLET Ref 0 Prov:Skyler Monsalve DO 04/04/15 Omeprazole Magnesium (Prilosec Otc)20 Mg Tablet.dr20 Mg PO DAILY #30 PKG Ref 0 Prov:Skyler Monsalve DO 04/04/15 History History of ENT Problems?: No Hx of Heart Problems?: No Cardiovascular History: Denies:: Congestive Heart Failure Hypertension Hx of Respiratory Problem?: Yes Respiratory History: Positive for:: Asthma Dyspnea Denies:: COPD Chest Surgery Emphysema Hemoptysis Pneumonia Tuberculosis Hx Neurologic Problems?: No Hx of GI Problems?: No Hx of Problems?: No Male Hx: Denies:: Prostate Problems Scrotal Mass Testicular Surgery Hx Musculoskeletal Problems?: No Hx of Psycho/Social Problems?: No Psycho Social History: Denies:: Anxiety Bipolar Disorder Hx Depression Suicide Attempt Hx Surgeries?: No Hx Any Other Health Problems?: Yes Other History: Denies:: Cancer Hospitalization Thyroid Disease History Blood Transfusions: Positive for:: Accept Blood Products? Denies:: Blood Transfuse Reaction Blood Transfusions Hx Diabetes: No Occupation: not currently working Hx Alcohol Use: NoHx Substance Use: No Smoking Status: Current Every Day Smoker Have You Smoked inLast 12 mo: YesApprox How Many Cigarettes/day: unknown Stop/Bang Treated for Sleep Apnea?: No Do You Have a CPAP Machine?: No S-Snoring: Do You Snore Loudly: No T-Tired: feel tired, fatigued: No O-Obsered: Observed not breath: No P-Blood Pressure: treated: No B- Body Mass Index > 35 kg/m2: No A- Age over 50: No N- Neck Large Circumference: No G- Gender Male: Yes TANNER Total Score: 1 TANNER Risk Assessment: Low Risk, <3 Yes Risk Assessment Category Category 1A: Patient has history of documented sleep apnea, and HAS NOT received any narcotic, sedative or anesthesia administration during this stay. Category 1B: Patient has history of documented sleep apnea, and HAS received any narcotic , sedative or anesthesia administration during this stay Category 2: Patient has SUSPECTED Obstructive Sleep Apnea, and HAS received any narcotic , sedative or anesthesia administration during this stay. Category 3: Patient has SUSPECTED Obstructive Sleep Apnea and HAS NOT received narcotic, sedative or anesthesia administration during this stay. Category 4: Outpatient in Procedural Areas with known sleep apnea or who screen positive for High Risk via the STOP/BANG questionnaire. Exam Exam Vital Signs Vital Signs Date Time Temp Pulse Resp B/P Pulse Ox O2 Delivery O2 Flow Rate FiO2 05/17/16 16:05 63 16 94 Room Air 05/17/16 12:59 36.6 78 16 113/70 95 Nasal Cannula 1.00 05/17/16 11:22 79 16 91 Nasal Cannula 1.50 05/17/16 08:30 Supplement Oxygen General Appearance: Alert, Oriented X3, Cooperative, No Acute Distress HEENT/AIRWAY: MP 2 Lungs: Clear to Auscultation, Normal Air Movement Heart: Exam Unremarkable, Regular Rate/Rhythm, No Murmurs/Rubs/Gallops Meds/Labs/Diagnostics Admission Meds Current Medications Heparin Sodium (Porcine) (Heparin Inj) 5,000 unit Q8 SUBQ Last administered on 05/16/16t 16:34; Start 05/16/16 at 16:30 Prenat Multivit/ [place]/Iron/Folic Ac ( Vitamins) 1 tablet DAILY PO Last administered on 05/17/16 07:40; Start 05/17/16 at 08:30 Thiamine HCl (Vitamin B1) 100 mg DAILY PO Last administered on 05/17/16 07:41 ; Start 05/17/16 at 08:30 Pharmacy Consult 1 ea 1 ea DAILY XX Last administered on 05/16/16 21:45; Start 05/16/16 at 21:45 Ceftriaxone Sodium 2000 mg/ Dextrose/Water 50 ml @ 100 mls/hr Q24H IV Last administered on 05/17/16 00:41; Start 05/16/16 at 22:00 Vancomycin HCl 1750 mg/Sodium Chloride 500 ml @ 333.333 mls/hr OT ONCE IV Last administered on 05/17/16 01:28; Start 05/16/16 at 22:00; Stop 05/16/16 at 23:29; Status DC Sodium Chloride 250 ml @ ud STK-MED ONCE .ROUTE Last administered on 05/17/16 00:42; Start 05/17/16 at 00:31; Stop 05/17/16 at 00:32; Status DC Vancomycin HCl/ Sodium Chloride (Vancocin Inj/ Normal Saline) 500 ml @ 333.333 mls/hr Q12H IV Last administered on 05/17/16 10:48; Start 05/17/16 at 11:00 Methylprednisolone Sodium Succinate (Solu-Medrol Inj) 40 mg Q8 IVPUSH Last administered on 05/17/16 16:08; Start 05/17/16 at 16:30; Stop 05/18/16 at 06:00 Labs Test 05/16/16 05:25 05/16/16 07:31 05/16/16 11:45 05/17/16 00:10 Magnesium Level 2.1mg/dL (1.6-2.6) Troponin T 0.010ug/L (0.0-0.011) Urine Color Yellow (YELLOW) Urine Appearance Hazy (CLEAR,HAZY) Urine pH 6.0 (5.0-8.0) Urine Specific [place] 1.010 (1.003-1.035) Urine Protein Negativemg/dL (NEG,TRACE) Urine Glucose (UA) Negativemg/dL (NEGATIVE) Urine Ketones Negativemg/dL (NEGATIVE) Urine Occult Blood Trace (NEGATIVE) Urine Nitrite Negative (NEGATIVE) Urine Bilirubin Negative (NEGATIVE) Urine Urobilinogen Normalmg/dL (NORMAL) Urine Leukocyte Esterase Trace (NEGATIVE) Urine RBC 0-2/hpf (0-2) Urine WBC 6-10/hpf (0-5) Urine Epithelial Cells Occasional/hpf (NONE-MOD) Urine Crystals None seen (NONE SEEN) Urine Bacteria Few/hpf (NONE-FEW) Urine Hyaline Casts None/lpf (NONE) Urine Granular Casts None seen (NONE SEEN) Urine Waxy Casts None seen (NONE SEEN) Urine Red Blood Cell Casts None seen (NONE SEEN) Urine White Blood Cell Casts None seen (NONE SEEN) Urine Mucus None seen (None Seen) Urine Trichomonas None seen (NONE SEEN) Urine Yeast None (NONE SEEN) Urinalysis Comment None Urine Culture Reflexed Indicated Urine Opiates Screen Positive Urine Methadone Screen Negative Urine Barbiturates Screen Negative Urine Amphetamines Screen Positive Urine Benzodiazepines Screen Negative Urine Cocaine Metabolite Screen Negative Urine Cannabinoids Screen Negative Urine Legionella pneumophilia Ag Negative (Negative) Hepatitis A IgM Antibody Negative (Negative) Hepatitis B Surface Antigen Negative (Negative) Hepatitis B Core IgM Antibody Negative (Negative) Hepatitis C Antibody <0.1s/co ratio (0.0-0.9) Hepatitis C Comment Comment (.) HIV (1&2) Ag and Ab, 4th Generation Non reactive (Non Reactive) Hold [place] Top Tube Received (Received) Hold [place] Top Tube Received (Received) Test 05/17/16 06:00 White Blood Count 30.0th/mm3 (3.8-10.1) Red Blood Count 4.76mil/mm3 (4.40-5.80) Hemoglobin 13.2g/dL (13.8-17.2) Hematocrit 38.7% (41.0-50.0) Mean Corpuscular Volume 81.3fL (81-100) Mean Corpuscular Hemoglobin 27.7pg (27.0-35.0) Mean Corpuscular Hemoglobin Concent 34.1% (32.0-37.0) Red Cell Distribution Width 13.8% (12.3-15.4) Platelet Count 388bil/L (150-400) Neutrophils (%) (Auto) 93.5% (40-74) Lymphocytes (%) (Auto) 4.4% (14-46) Monocytes (%) (Auto) 1.6% (4-12) Eosinophils (%) (Auto) 0% (0-5) Basophils (%) (Auto) 0.1% (0-3) Erythrocyte Sedimentation Rate 17mm/hr (0-15) Sodium Level 138mEq/L (134-144) Potassium Level 4.5mEq/L (3.5-5.2) Chloride Level 104mEq/L (97-108) Carbon Dioxide Level 19mmol/L (18-29) Blood Urea Nitrogen 18mg/dL (6-20) Creatinine 0.84mg/dL (0.76-1.27) Estimat Glomerular Filtration Rate 113mL/min (>59) Glucose Level 185mg/dL (60-99) Calcium Level 9.4mg/dL (8.5-10.1) Total Bilirubin 0.2mg/dL (0.0-1.2) Aspartate Amino Transf (AST/SGOT) 18U/L (0-50) Alanine Aminotransferase (ALT/SGPT) 14U/L (0-44) Alkaline Phosphatase 78U/L (25-150) C-Reactive Protein 1.1mg/dL (0.0-0.5) Total Protein 7.4g/dL (6.4-8.4) Albumin 3.1g/dL (3.4-5.0) Procalcitonin 0.02ng/mL (0.00-0.08) Plan Impression Patient chart reviewed, patient interviewed and anesthestic plan with risks, benefits, and alternatives discussed, and informed consent obtained. ASA Physical Status: ASA2 Mod Systemic Disease Anesthetic Plan: GA, MAC Bene/Risks/Altern/Consents: Yes HP Complete Prior to Induction: Yes Luz Elena Cruz MD May 17, 2016 16:15
[2016-05-17] MEDS ORDERED: HYDROcodone-APAP 5-325 mg Tablet PO PRN (16:30)
[2016-05-17] MEDS ORDERED: MethylprednisoLONE Sodium Succinate 40 mg/mL Inj IVPUSH SCH (16:30)
--- NOTE | 2016-05-17 16:32 | NUR ---
To Surgery Patient report given to OR nurse. Patient was transferred via gurney. Patient left to OR at 1630. Baclofen not given due to PO and surgery soon.
[2016-05-17] MEDS ORDERED: Bupivacaine 0.5%/EPI 50 mL Inj INFILTRATE ONE (16:48)
[2016-05-17] MEDS ORDERED: Gentamicin 40 mg/mL 2 mL Inj IRRIGATION ONE (16:55)
[2016-05-17] MEDS ORDERED: Labetalol 5 mg/mL 4 mL Inj IV PRN (17:00)
[2016-05-17] MEDS ORDERED: MetoCLOpramide 5 mg/mL 2 mL Inj IVPUSH PRN (17:00)
[2016-05-17] MEDS ORDERED: Lactated Ringer's 1,000 ML IV SCH (17:00)
[2016-05-17] MEDS ORDERED: fentaNYL-PF 50 mCg/mL 2 mL Inj IVPUSH PRN (17:00)
[2016-05-17] MEDS ORDERED: Ondansetron 2 mg/mL 2 mL Inj IVPUSH PRN (17:00)
[2016-05-17] MEDS ORDERED: Atropine 0.4 mg/mL Inj IVPUSH PRN (17:00)
[2016-05-17] MEDS ORDERED: Phenylephrine 10,000 mCg/mL Inj IVPUSH PRN (17:00)
[2016-05-17] MEDS ORDERED: EPHEDrine Sulfate 50 mg/mL Inj IVPUSH PRN (17:00)
[2016-05-17] MEDS ORDERED: Lactated Ringer's 500 ML IV PRN (17:00)
[2016-05-17] MEDS ORDERED: HYDROmorphone 1 mg/mL Inj IVPUSH PRN (17:00)
[2016-05-17] MEDS ORDERED: Dexamethasone 4 mg/mL Inj IVPUSH PRN (17:00)
--- NOTE | 2016-05-17 17:16 | PCM.PODPO ---
Podiatry Operative Report Date of Service: May 17, 2016 Date of Service May 17, 2016 Pre Operative Diagnosis Multiple cutaneous abscess left lower extremity Post Operative Diagnosis Same as preoperative diagnoses Procedure Incision and drainage multiple cutaneous abscesses of the left foot Surgeon Surgeon: ullom. alysha [email or web address] Assistants: None Indication for Procedure Abscess and cellulitis of left foot Findings Multiple cutaneous abscesses of the left foot without extension to subcutaneous tissue Details of Procedure Patient was evaluated at bedside at lunch time in no acute distress. The patient was resting comfortably. Patient complaining of moderate discomfort in his feet. Patient admitted to [facility] yesterday with leukocytosis and potential asthma exacerbation. Patient has a history of drug abuse and states that his drug of choice is Percocet. This patient has tested positive for opiates and amphetamines upon admission to the emergency department. Patient denies using IV drugs. A bedside washout and debridement was performed utilizing Betadine prep and small stab incisions were made into cutaneous abscesses of the left foot a wound culture was taken and sent for microbiologic analysis. The patient was admitted to the operating room schedule for sterile incision and drainage. The patient was identified in the preoperative holding area and the left lower extremity was identified as the operative extremity and appropriately marked. The patient was transported into the operating room and placed under Mac anesthesia. 10 mL of half percent Marcaine with epinephrine was injected subdermally locally to the abscess sites of the left foot. The patient was then prepped and draped in the normal aseptic technique. Attention was first paid to the plantar aspect of the left foot a hemostat was then inserted into previous small stab incisions and probed proximally and distally. Only a minimal amount of purulent drainage was noted. Local debridement was performed and the abscess sites were debrided of all loose and soft tissue. Superficial wounds are noted without extension into deep tissue. No subcutaneous abscesses were identified. Palpation of the plantar foot reveals no noted fluctuance subcutaneously. All abscess sites were then copiously flushed with large amounts of normal saline including 3 separate abscesses of the plantar medial arch and 3 separate abscesses of the posterior lateral foot. An additional 4 mL of half percent Marcaine with epinephrine was injected locally and a Betadine soaked gauze dressing was applied to the left foot consisting of Betadine soaked 4 x 4's and sterile Kerlix and an Joss bandage. The right lower extremity dressing was changed at this time due to loosening of the bandage however no incision and drainage was performed to the right foot. The patient was awoken by anesthesia and transported to the operating room. No complications occurred during this procedure. Grafts, Implants: None Complications There were no periprocedural complications identified. Condition Stable Anesthetic Administered: MAC Catheters: None Output, Estimated Blood Loss: 5 Blood Admin during surgery: No Surgical Cast or Splint: None Surgical Specimen Removed: No Specimen sent to Pathology: No Post Operative Plan Advance diet as tolerated Keep dressing clean dry and intact Restart inpatient medication per hospitalist service recommendation Continue IV antibiotic therapy Podiatry will follow daily for dressing change Monitor white blood cell count daily Transfer back to floors when stable Consider alternative source as primary reason for leukocytosis as this patient did have multiple abscesses however they were all superficial and subdermal in nature without extension into subcutaneous tissue which is unlikely to produce significant leukocytosis. Alysha Valdez DPM May 17, 2016 17:16
[2016-05-17] MEDS: Sodium Chloride LOK Flush 10 mL Syringe IVFLUSH SCH (18:21)
--- NOTE | 2016-05-17 18:28 | NUR ---
From PACU Patient report called to [facility] nurse. Patient arrived via gurney and was assisted to bed with staff and slide board. Patient alert and oriented. Patient left foot was numb. Left foot placed on pillow. Patient on 2L supplemental O2 via nasal canella.
--- NOTE | 2016-05-17 18:57 | PCM.ANEP2 ---
Post Anesthesia Evaluation ASA/CMS Post Anesthesia VS in Patient's Normal Range?: Yes Resp Stable; Airway Patent?: Yes CV Function & Hydration Stable: Yes Mental Status Recovered?: Yes Pain control Satisfactory?: Yes N/V Control Satisfactory?: Yes Luz Elena Cruz MD May 17, 2016 18:57
--- NOTE | 2016-05-17 18:57 | PCM.ANEP1 ---
Post Anesthesia Phase 1 PACU Phase 1 Assessment Date of Service: May 17, 2016 Vital Signs Vital Signs Date Time Temp Pulse Resp B/P Pulse Ox O2 Delivery O2 Flow Rate FiO2 05/17/16 17:56 36.5 81 18 108/57 96 Nasal Cannula 2 05/17/16 17:45 84 15 103/57 95 Nasal Cannula 2 05/17/16 17:37 87 22 101/67 99 Simple Mask 6 05/17/16 17:23 85 22 104/63 97 Simple Mask 6 05/17/16 17:10 36.8 95 28 111/57 97 Simple Mask 6 05/17/16 16:05 63 16 94 Room Air 05/17/16 12:59 36.6 78 16 113/70 95 Nasal Cannula 1.00 05/17/16 11:22 79 16 91 Nasal Cannula 1.50 Anesthetic Administered: GA, MAC Level of Alertness: Awake, talking MURDOCK's with Equal Strength: Yes Pain: No Nausea or Vomiting: No Oxygen Delivery: Room Air Lungs: Clear to Auscultation, Normal Air Movement Luz Elena Cruz MD May 17, 2016 18:57
--- NOTE | 2016-05-17 19:26 | CONS ---
[address] [address] CONSULTATION REPORT PATIENT: MALINDA DUVALL : 1985 MR#: [id number] ADMIT: 05/16/2016 JOB ID: [id number] DATE OF SERVICE: 05/17/2016 REASON FOR CONSULTATION: Left foot abscess. I thank Dr. Angeles for this consult. HISTORY OF PRESENT ILLNESS: The patient is a 30-year-old, gentleman with a history of polysubstance abuse by numerous routes, including smoking and injecting heroin, meth and other substances. He also is reported to abuse oral opiate prescription medications. The patient has a history of soft tissue infections in the past, but actually presented to the emergency department on this occasion yesterday with acute shortness of breath. The patient reports that he has been short of breath for a day or two and has been having a bit of green sputum prior to admission. He denies pleuritic chest pain, fevers, chills or sweats. He denies fevers, chills, sweats, or any sore throat at the time he was in the ED, though we now tells me he did have a sore throat. In any event, the patient initially stated he had not smoked any substances prior to admission, but there is some suggestion is in the chart that possibly he had smoke some heroin recently which has given him bronchospasm in the past. In any event, the patient was admitted because of his respiratory issues. When he was being admitted for this respiratory problem, it was noted in the ED that he had abscesses involving his left foot. The patient told me he stepped on something sharp in the shower a few days ago and, after that, his left foot began to swell and become painful. It has also been noted by myself and others that there appear to be needle injection sites between his toes, so I am not completely certain how the foot infection started but in any event, the patient states he stepped on something sharp in the shower a few days ago and, since then, his left plantar foot has been swelling and more and more tender. Despite that, he has actually been able to walk. While he was still in the ED, the patient became very somnolent and that led the ED staff to think about possible drug overdose. He was given Narcan and became very awake suddenly which suggested perhaps that he was still doing intravenous or perhaps oral narcotics as well as perhaps smoking narcotics. When I interview the patient this evening, he tells me that in the days leading up to admission, he was having a productive cough with green sputum. Tonight, he denies smoking heroin though apparently has mentioned it to others. He states that in addition to the green sputum, he had some fevers and some chills also which he initially denied. He states that he has had a sore throat, as well as just generalized feeling poorly for four or five days. He notes that the stepping on the sharp object in the shower was more recent, maybe a day or two ago, and since then his left foot has been swelling, but has been able to walk on it. 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 He tells me he has been HIV and hepatitis C negative in the past. This evening, the patient underwent I and D by Dr. Valdez of Podiatry in the operating room. The patient was found to have shallow abscesses of his plantar surface of the foot. Minimal amount of purulent drainage was obtained. There was no extension of the deep tissue and Dr. Valdez opened up all these shallow abscesses and cleaned them. There were no complications of this afternoon's surgery. PAST MEDICAL HISTORY: 1. Polysubstance abuse by oral, IV and inhalational routes of heroin and meth. 2. Prescription opiate abuse. 3. History of severe drug overdose in the past. 4. History of MSSA soft-tissue infections in the past. 5. Possible asthma or more likely perhaps bronchospasm secondary to inhaled heroin and other substances. SOCIAL HISTORY: The patient reports he is a cigarette smoker but not a drinker, and he uses drugs as mentioned above. He works in [employer] with a friend of his and occasionally has his feet immersed in salt water. He was born and raised here in [place] and went to [employer]. FAMILY HISTORY: Positive for TB in "uncles and aunts." REVIEW OF SYSTEMS: Was done. The patient is quite lethargic this evening, but I got what I could. He states he has had intermittent headaches for a few days. No visual complaints, however. He states he has had sore throat, and perhaps some trouble swallowing for a few days. He denies stiff neck. He has had a cough productive of greenish sputum without pleuritic chest pain or shortness of breath. He has had both myalgias and arthralgias for the past few days. He has no nausea, vomiting, diarrhea, dysuria, or issues with his penis or testicles. He has not noticed swollen lymph nodes. He has had pain in his left foot for a few days perhaps since he stepped on an unknown sharp object in the shower. He has not had any problems with the other foot, though it is also bandaged for reasons that still are unclear to me. He has been able to ambulate with pain in his left foot. Rest of the review of systems negative. PHYSICAL EXAMINATION: Reveals an afebrile gentleman, temperature 36.5, pulse 81, respiratory rate 18, blood pressure 108/57. He is saturating well on 2 L and in no acute distress. Examination of the mental status reveals a patient who seems perhaps sedated in some way, but also appears depressed with a very flat affect and laconic speech. His head is without trauma. Eyes without conjunctivitis or scleral icterus. Nose normal. Oral cavity, no thrush or hairy leukoplakia. Neck is completely supple without adenopathy. Lungs are clear. Cardiac tones: Regular rate and rhythm without murmur. Abdomen somewhat guarded and difficult to examine, but no obvious hepatosplenomegaly, tenderness or ascites. No suprapubic fullness is noted. No inguinal adenopathy. The patient's legs are normal down to the feet themselves. Both feet are wrapped in dressings which were clearly appraised in the OR and it is a little unclear to me why the right foot is wrapped in this dressing, but I did not remove it as he was just returned from the OR moments ago under the care of the commercial loan assistant. His toes protrude from the dressings and one can see what appeared to be injection sites between the toes, especially on the left foot. These areas, however, did not appear infected and it is interesting that the infections that were debrided today on the left foot are plantar. Neurologically, the patient is completely intact except for some lethargic mental status, but he is oriented x3 and able to give history. LABORATORIES: Include a white count of 19,000 when he came to the ED last night, now 30,000 with 93% segs, sed rate 17, CRP 1.1, creatinine 0.84, albumin 3.1, procalcitonin 0 x2. Urinalysis with 6-10 white cells. Urine tox positive for opiates and amphetamines. Hep C is negative. HIV is negative. Multiple cultures are available. The patient has had a urine pneumococcal and Legionella antigens which are negative. Urine culture negative. Respiratory viral PCR negative. Blood cultures x2 negative to date. The initial swab of the abscess of his foot done last night had no polys and no organisms, but the fluid obtained prior to going to the OR today by the mcelroy team has got many polys and gram-positive cocci. IMAGING: Includes the foot CT which basically does not show an abscess, that was the preop CT, and a chest x-ray on admission which is clear. IMPRESSION: This gentleman has developed what appears to be a Staph or strep abscesses sees of his left plantar foot. According to Dr. Valdez, these are quite shallow. 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 The fact they are staph and strep though would make vibrio or some ocean organism less likely. In any event, the patient's wounds have now been debrided and he is likely to have a quick recovery. He does not seem to have much evidence of pulmonary infection based on his chest x-ray, and his physical exam tonight does not disclose much in the way of rales. RECOMMENDATIONS: 1. We can continue with the combination of vancomycin and ceftriaxone that has been initiated at this time while we await the cultures. 2. I would likely favor a move towards a single dose of dalbavancin and discharge in the relatively near future if we find a susceptible organism and do not encounter any vibrios. 3. I will correspond with the microbiology lab to make sure that his cultures are set up in such a way that every organism would be cultured, though I suspect that the water recently around here is too cold to support the growth of vibrio-type organisms though it has been reported in our local bays and oyster beds. 4. Thank you very much for this consult.
[2016-05-18] MEDS: Sodium Chloride LOK Flush 10 mL Syringe IVFLUSH SCH ×4 (00:31→22:17)
[2016-05-18] MEDS: MethylprednisoLONE Sodium Succinate 40 mg/mL Inj IVPUSH SCH (00:37)
[2016-05-18] MEDS: Vancomycin Inj 1,500 MG in 0.9% Sodium Chloride 500 ML IV SCH ×2 (00:38→10:54)
[2016-05-18] MEDS: Heparin 5,000 Unit/mL Inj SUBQ SCH ×3 (00:38→16:25)
[2016-05-18 04:53] VITALS: BP 109/63; PULSE 82; RESP 18; O2SAT 93
--- NOTE | 2016-05-18 05:21 | NUR ---
Activity Pt remained in room for the shift, uses urinal; slept most of shift. Pt alert and oriented x3, cooperative with care and medications. No visitors this shift, left room with call light at bedside.
[2016-05-18 07:02] LABS: BASOPHILS % (AUTO) 0 % (0-3); EOSINOPHILS % (AUTO) 0 % (0-5); MONOCYTES % (AUTO) 3.4 % (4-12); Mean Corpuscular Hemoglobin 27.2 pg (27.0-35.0); Mean Corpuscular Volume 81.1 fL (81-100); NEUTROPHILS % (AUTO) 91.3 % (40-74); Platelet Count 400 bil/L (150-400)
[2016-05-18] MEDS: Albuterol-Ipratropium 3 mL Inhalation Solution NEB SCH ×4 (07:23→17:49)
[2016-05-18 07:25] VITALS: PULSE 78; RESP 20; O2SAT 95
[2016-05-18] MEDS ORDERED: predniSONE 20 mg Tablet PO SCH (08:30)
[2016-05-18] MEDS: Vancomycin Dose per Pharmacist XX SCH (08:30)
[2016-05-18] MEDS: Multivit-Miner-Folic Acid-Iron Tablet PO SCH (08:50)
[2016-05-18] MEDS ORDERED: Vancomycin Serum Trough XX ONE (10:30)
--- NOTE | 2016-05-18 11:41 | PROG NOTE ---
[address] [address] PROGRESS NOTE PATIENT: MALINDA DUVALL : 1985 MR#: [id number] ADMIT: 05/16/2016 JOB ID: [id number] DATE: 05/18/2016 INFECTIOUS DISEASE FOLLOW UP NOTE: REASON FOR FOLLOW UP: Plantar cellulitis. INTERVAL HISTORY: Yesterday, the patient had debridement of his left plantar area where he had numerous shallow abscesses. These did not appear to involve any of the deeper structures at all and the feet were then dressed by Podiatry. But today, the patient is somewhat difficult to arouse but when he is awake he says he has no fevers, chills or sweats. No pulmonary symptoms. Vague GI upset and perhaps one loose stool. Note that he may be withdrawing from opiates. His foot he reports essentially not painful and, of course, he is not standing on it either, lying in bed. PHYSICAL EXAMINATION: Reveals a somnolent, afebrile gentleman, temperature 37.1, blood pressure 109/63, saturating well on 2 L. Lungs: Quite clear posteriorly. Cardiac tones without murmur. Abdomen benign. His feet are both still wrapped in the dressings applied by Podiatry and we did not remove them. LABORATORIES: Include a white count of 30,000 again today, 91% neutrophils. Creatinine 0.72. CRP was 1.1 yesterday. It is 0.4 today. Procalcitonin also 0. Urinalysis 6-10 white cells. Hep C and HIV negative. Cultures of the feet are growing group A strep, two separate samples. MRSA screen negative and blood cultures negative. IMPRESSION: This is a group A strep abscess of the left plantar foot. There was no indication at the time of debridement by Podiatry that there was any deeper structures involved or that he had a necrotizing infection or osteomyelitis, but we have grown group A strep now in two cultures. The patient is relatively nontoxic, though it is odd that he is so difficult to arouse and also that his white count is so high. RECOMMENDATIONS: 1. We can drop the vancomycin at this point, continue with ceftriaxone. 2. It is possible that as we progress towards discharge we could use either an oral amoxicillin or perhaps a single dose of dalbavancin to ensure compliance but I would be inclined to keep him in the hospital until we see some improvement in his white count as well as some normalization of his somnolent state. 3. This case discussed with the team.
[2016-05-18 13:35] VITALS: BP 132/66; PULSE 68; RESP 18; O2SAT 97
[2016-05-18] MEDS: Pantoprazole 40 mg ER24 Tablet PO SCH (13:55)
[2016-05-18] MEDS ORDERED: cloNIDine 0.1 mg Tablet PO PRN ×2 (14:30→14:36)
--- NOTE | 2016-05-18 14:33 | PCM.PNMED ---
Subjective Date of Service May 18, 2016 Subjective Stable overnight. S/p I&D with Podiatry. Afebrile overnight Wyatt reports he feels improved this morning. He is still having some moderate pain in his left foot but his breathing has much improved. He still has some mild abd pain, but this has also improved over night. He denies any fevers, CP, or SOB. Exam Vital Signs Vital Sign - Last Date Time Temp Pulse Resp B/P Pulse Ox O2 Delivery O2 Flow Rate FiO2 05/18/16 07:25 78 20 95 Room Air 05/18/16 04:53 37.1 109/63 2.00 Intake and Output 05/17/16 05/17/16 05/18/16 Cumulative From/Thru 15:00 23:00 07:00 05/16/16 05:11 - 05/18/16 06:06 Intake Total 1270 ml 1340 ml 4330 ml Output Total 5 ml 5 ml Balance 1265 ml 1340 ml 4325 ml Intake Oral 400 ml 757 ml 1557 ml IV Total 870 ml 583 ml 2773 ml Output Urine Total 0 ml Estimated Blood Loss 5 ml 5 ml # Voids 6 2 8 # Bowel Movements 0 0 Exam Gen.: Well-developed young male who is somewhat sleepy while laying in bed, otherwise in NAD Eyes: Pupils equal round and reactive to light, anicteric sclera, Neck: Soft, nontender Cardiovascular: Regular rate and rhythm, no murmurs noted Lungs: CTAB, normal resp effort on RA Abdomen: Mildly tender to palpation diffusely, soft, nondistended, no masses palpated but no rashes noted Extremities: BLE wrapped in compressive bandaging, able to move all toes with sensation intact. Skin: Numerous tattoos, warm and dry, no rashes noted : No Mckeon in place Neuro: Somnolent, but improved today. More responsive. Alert and oriented. Psych: Flat affect and depressed mood IVs and Medications Medications Reviewed: Medications were reviewed in detail Lab and Diagnostics Result Diagram: 05/18/1662805/18/16628 X-Rays, CTs and MRIs X-RAY CHEST ONE VIEW, PORTABLE ([id number]) IMPRESSION: No acute cardiopulmonary disease. Dictated by: Jones AMANDA Interpreted: Destiny Jhaveri MD on 05/16/2016 at 8:46 Transcribed by: PB on 05/16/2016 at 8:[address] with con IMPRESSION: Normal left foot contrast-enhanced CT. No evidence for left foot abscess. Additional Diagnostics ABG DateTimeAnalyzed 06:24:00 -_ pH ____7.357 - 7.350 7.450 pCO2 ___46.5__ -mmHg 35.0 45.0 pO2 147 -mmHg 69.0 116 HCO3- ___25.4__ -mmol/L 22.0 26.0 Assessment & Plan Norm Hayes 30-year-old man with past medical history remarkable for polysubstance abuse, and asthma exacerbation secondary to smoking recreational drugs who presents to [facility] emergency Department with acute worsening shortness of breath and left foot abscess # Acute Left Plantar abscess s/p I&D on 05/17, present on admission, ongoing - Patient did meet SIRS criteria, but Tachycardia and tachypnea at admission may have been secondary to dyspnea from asthma exacerbation - Left foot is likely source of leukocytosis of 19k on admission -CT of left foot performed, but not well visualized - Vancomycin and Ceftriaxone initiated 05/16 on admission, titrated down to just IV Ceftriaxone - blood cx neg x 48, tissue cultures growing Grp A Strep - Patient is s/p I&D with Dr. Valdez, podiatry. Tissue culture results as above. Awaiting JEAN MARIE #. Acute asthma exacerbation, present on admission - Likely secondary to inhalation of heroin and/or amphetamine smoke - Solu-Medrol initiated on admission, will continue to quick taper down to oral Prednisone. - DuoNeb's 4 times a day while awake - Albuterol nebulizer every 2 hours as needed for shortness of breath - Much improved today, will rapidly decrease Oral Prednisone dosing. #. Acute opiate intoxication, present on admission, acute - Urine tox screen ordered shows both amphetamines and heroin - Narcan given resulted in acute opiate withdrawals with severe abdominal pain - Clonidine 0.1 mg every 2 hours when necessary - Hydroxyzine IM has been converted to by mouth when necessary for patient comfort - Baclofen by mouth for muscle cramps and abdominal discomfort - Per Dr. Ernandez, Subutex was indeed given to patient once during initial admission. - Patient's withdrawal symptoms have improved, but continue to be somnolent, so will decrease dosing frequency to avoid further somnolence. # Acute hypoxic and hypercapnic respiratory failure, present on admission, stable - secondary to asthma exacerbation as above - noted in the emergency department records he was hypoxic and hypercapneic - Resolved #. Leukocytosis, present on admission, acute - White count continues to be high with level 30.9 today - Patient's vital sign to used to be stable and he is afebrile. - This is likely due to steroid administration, but continue to monitor other signs or symptoms of infection -Blood cultures have been negative 24 hours. Respiratory viral PCR negative. UA grew out MUG. #. Polysubstance abuse, present on admission, acute on chronic - Narcan given on floor with reversal of somnolence indicate an acute intoxication - Patient will have limited visitors and have his personal belongings locked - Encourage cessation and referral to [place] Options - HIV and hepatitis panel ordered and pending DVT prophylaxis: Subcutaneous heparin Dispo: Will likely discharge in 1-2 days pending JEAN MARIE of abscess culture Pain Evaluation: Adequate Pain Control GI Prophylaxis: Not indicated VTE Prophylaxis: Sub-Q Heparin (Unfractionated) Resuscitation Status: CPR: Attempt Resuscitation Attending Statement The patient was seen and examined independently on 05/18/2016 and case discussed with Dr. Angeles , I agree with the history, exam and plan as outlined in the note above. Bud Angeles DO May 18, 2016 08:19 Garret Parrish MD May 19, 2016 07:18
--- NOTE | 2016-05-18 16:21 | NUR ---
Social Work: Attempted CD assessment Pt declined. Lupe White, DONOR RELATIONS OFFICER
[2016-05-18 17:49] VITALS: PULSE 80; RESP 20; O2SAT 96
--- NOTE | 2016-05-18 17:52 | NUR ---
Activity/drsgs/behavior Pt's amb to BR ind this shift. Drsgs remain intact to feet, wound care in this afternoon to assess. Pt denies any pain/discomfort. Pt sleeping most of shift, will rouse when staff enters room but will choose not to respond to questions, etc. Currently resting comfortably, bed in lowest, locked position.
--- NOTE | 2016-05-18 18:10 | PCM.PNPOD ---
Subjective Date of Service: May 18, 2016 Date of Service: May 18, 2016 Visit Information: Reason for Visit Asthma Exacerbation Surgery/Surgery Date I&D, left foot Post-Op Day # 1 Date of Admission: May 16, 2016 at 06:18 Subjective: Patient complaining of abdominal pain, but no issues with feet. Objective Vital Sign - Last Date Time Temp Pulse Resp B/P Pulse Ox O2 Delivery O2 Flow Rate FiO2 05/18/16 17:49 80 20 96 Room Air 05/18/16 13:35 36.6 132/66 2.00 Intake and Output 05/17/16 05/17/16 05/18/16 Cumulative From/Thru 15:00 23:00 07:00 05/16/16 05:11 - 05/18/16 06:06 Intake Total 1270 ml 1340 ml 4330 ml Output Total 5 ml 5 ml Balance 1265 ml 1340 ml 4325 ml Intake Oral 400 ml 757 ml 1557 ml IV Total 870 ml 583 ml 2773 ml Output Urine Total 0 ml Estimated Blood Loss 5 ml 5 ml # Voids 6 2 8 # Bowel Movements 0 0 Result Diagram: 05/18/16 0629 05/18/16 0629 Lab Test 05/16/16 05:25 05/16/16 07:31 05/16/16 11:45 05/17/16 00:10 Magnesium Level 2.1mg/dL (1.6-2.6) Troponin T 0.010ug/L (0.0-0.011) Urine Color Yellow (YELLOW) Urine Appearance Hazy (CLEAR,HAZY) Urine pH 6.0 (5.0-8.0) Urine Specific [place] 1.010 (1.003-1.035) Urine Protein Negativemg/dL (NEG,TRACE) Urine Glucose (UA) Negativemg/dL (NEGATIVE) Urine Ketones Negativemg/dL (NEGATIVE) Urine Occult Blood Trace (NEGATIVE) Urine Nitrite Negative (NEGATIVE) Urine Bilirubin Negative (NEGATIVE) Urine Urobilinogen Normalmg/dL (NORMAL) Urine Leukocyte Esterase Trace (NEGATIVE) Urine RBC 0-2/hpf (0-2) Urine WBC 6-10/hpf (0-5) Urine Epithelial Cells Occasional/hpf (NONE-MOD) Urine Crystals None seen (NONE SEEN) Urine Bacteria Few/hpf (NONE-FEW) Urine Hyaline Casts None/lpf (NONE) Urine Granular Casts None seen (NONE SEEN) Urine Waxy Casts None seen (NONE SEEN) Urine Red Blood Cell Casts None seen (NONE SEEN) Urine White Blood Cell Casts None seen (NONE SEEN) Urine Mucus None seen (None Seen) Urine Trichomonas None seen (NONE SEEN) Urine Yeast None (NONE SEEN) Urinalysis Comment None Urine Culture Reflexed Indicated Urine Opiates Screen Positive Urine Methadone Screen Negative Urine Barbiturates Screen Negative Urine Amphetamines Screen Positive Urine Benzodiazepines Screen Negative Urine Cocaine Metabolite Screen Negative Urine Cannabinoids Screen Negative Urine Legionella pneumophilia Ag Negative (Negative) Hepatitis A IgM Antibody Negative (Negative) Hepatitis B Surface Antigen Negative (Negative) Hepatitis B Core IgM Antibody Negative (Negative) Hepatitis C Antibody <0.1s/co ratio (0.0-0.9) Hepatitis C Comment Comment (.) HIV (1&2) Ag and Ab, 4th Generation Non reactive (Non Reactive) Hold [place] Top Tube Received (Received) Hold [place] Top Tube Received (Received) Test 05/17/16 06:00 05/18/16 06:29 05/18/16 10:45 Erythrocyte Sedimentation Rate 17mm/hr (0-15) Total Bilirubin 0.2mg/dL (0.0-1.2) Aspartate Amino Transf (AST/SGOT) 18U/L (0-50) Alanine Aminotransferase (ALT/SGPT) 14U/L (0-44) Alkaline Phosphatase 78U/L (25-150) Total Protein 7.4g/dL (6.4-8.4) Albumin 3.1g/dL (3.4-5.0) Procalcitonin 0.02ng/mL (0.00-0.08) White Blood Count 30.9th/mm3 (3.8-10.1) Red Blood Count 4.71mil/mm3 (4.40-5.80) Hemoglobin 12.8g/dL (13.8-17.2) Hematocrit 38.2% (41.0-50.0) Mean Corpuscular Volume 81.1fL (81-100) Mean Corpuscular Hemoglobin 27.2pg (27.0-35.0) Mean Corpuscular Hemoglobin Concent 33.5% (32.0-37.0) Red Cell Distribution Width 14.1% (12.3-15.4) Platelet Count 400bil/L (150-400) Neutrophils (%) (Auto) 91.3% (40-74) Lymphocytes (%) (Auto) 4.6% (14-46) Monocytes (%) (Auto) 3.4% (4-12) Eosinophils (%) (Auto) 0% (0-5) Basophils (%) (Auto) 0% (0-3) Sodium Level 141mEq/L (134-144) Potassium Level 4.3mEq/L (3.5-5.2) Chloride Level 104mEq/L (97-108) Carbon Dioxide Level 22mmol/L (18-29) Blood Urea Nitrogen 18mg/dL (6-20) Creatinine 0.72mg/dL (0.76-1.27) Estimat Glomerular Filtration Rate 135mL/min (>59) Glucose Level 142mg/dL (60-99) Calcium Level 9.3mg/dL (8.5-10.1) C-Reactive Protein 0.4mg/dL (0.0-0.5) Vancomycin Level Trough 7.7mcg/mL Exam Lungs: Clear to Auscultation, Normal Air Movement Lower Extremity Pulses: Palpable: Left Dorsalis Pedis Left Posterior Tibal Right Dorsalis Pedis Right Posterior Tibal Podiatry WOUND : Wound Location/Description Superficial circular wounds in distribution typical of moccasin-distribution tinea pedis bilaterally, ulcerative. The webspaces are macerated, indicating likely source. Surgical Cast or Splint: None Assessment & Plan Problems: (1) Tinea pedis of both feet Plan: Clotrimazole cream to both feet twice a day, including webspaces. No dressing needed. Use socks at all times. Status: Acute ICD Code: B35.3 (2) Superinfection Plan: Bacterial superinfection in feet is resolved. Treatment with antifungal topical medication to continue twice daily for 4 weeks. Podiatry signing off. Leukocytosis is not explained by condition on feet. Status: Acute ICD Code: B99.9 VTE Prophylaxis: Sub-Q Heparin (Unfractionated) Isaura Paiz DPM May 18, 2016 18:10
[2016-05-18 20:11] VITALS: BP 138/89; PULSE 75; RESP 18; O2SAT 96
[2016-05-18] MEDS: cefTRIAXone Inj 2,000 MG in Dextrose 5% Minibag Plus 50 ML IV SCH (21:50)
[2016-05-19] MEDS: Heparin 5,000 Unit/mL Inj SUBQ SCH ×2 (00:30→08:19)
[2016-05-19 05:00] VITALS: BP 129/78; PULSE 61; RESP 16; O2SAT 93
--- NOTE | 2016-05-19 05:21 | NUR ---
Visitors Final Inspector Balance Wheel spoke with the PT parents about visitors; the only visitors allowed to see the PT are the parents, brother and SO Iris Mott.
[2016-05-19] MEDS: Albuterol-Ipratropium 3 mL Inhalation Solution NEB SCH ×2 (05:43→11:00)
[2016-05-19 06:26] LABS: BASOPHILS % (AUTO) 0.3 % (0-3); EOSINOPHILS % (AUTO) 0.4 % (0-5); MONOCYTES % (AUTO) 9.4 % (4-12); Mean Corpuscular Hemoglobin 27.1 pg (27.0-35.0); Mean Corpuscular Volume 79.9 fL (81-100); NEUTROPHILS % (AUTO) 59.9 % (40-74); Platelet Count 396 bil/L (150-400)
[2016-05-19] MEDS: Pantoprazole 40 mg ER24 Tablet PO SCH (06:44)
[2016-05-19] MEDS: Multivit-Miner-Folic Acid-Iron Tablet PO SCH (08:19)
[2016-05-19] MEDS: Sodium Chloride LOK Flush 10 mL Syringe IVFLUSH SCH (08:20)
[2016-05-19] MEDS ORDERED: predniSONE 20 mg Tablet PO SCH (08:30)
[2016-05-19] MEDS ORDERED: CLON0.1T14 PO (10:53)
[2016-05-19] MEDS ORDERED: AMOX1TAB11 PO (10:53)
[2016-05-19] MEDS ORDERED: BACL10TA PO (10:53)
[2016-05-19] MEDS ORDERED: HYDR-3797 PO (10:53)
[2016-05-19] MEDS ORDERED: NICO1PAT5 TOPICAL (10:53)
--- NOTE | 2016-05-19 10:57 | PCM.DIMED ---
Nette Small DO 05/19/16 1057: Discharge Instructions Date of Service May 19, 2016 Dates of Hospitalization May 16, 2016 at 06:18 Discharge Diagnosis Discharge Diagnosis Acute Left Plantar abscess s/p I&D on 05/17, present on admission, ongoing Acute asthma exacerbation, present on admission Acute opiate intoxication, present on admission, acute Acute hypoxic and hypercapnic respiratory failure, present on admission, stable Leukocytosis, present on admission, acute Polysubstance abuse, present on admission, acute on chronic Medication Instructions You will be given scripts for the medications you were using here to help with withdrawal symptoms. Please use them as instructed on the scripts. You will also need to finish 7 days of antibiotic pills. Diet No restrictions Activity Limited until seen by PCP Call your provider Fever or Chills, Vomitting, Excessive diarrhea Patient Instructions Please follow up with the residency clinic in about 1-2 weeks. You will need to establish care with a PCP. Follow-up Provider: Naeem Armenta DO Follow-up with PCP in: 2 weeks Garret Parrish MD 05/19/16 1422: Discharge Instructions Attending's Statement The patient was seen and examined on 05/18/[address] Small , I agree with the discharge instructions as outlined in the note above. Nette Small DO May 19, 2016 10:57 Garret Parrish MD May 19, 2016 14:22
--- NOTE | 2016-05-19 11:18 | NUR ---
Social Work: Discharge Data: Pt is on day 3 of hospitalization. EMR reviewed. D/C orders are in. No d/c planning needs at this time. Pt declined CD resources previously. JAVA DEVELOPER ARCHITECT will continue to follow if needs arise. Assessment: Pt who is independent at baseline. Plan: Pt will d/c home via POV today. No d/c planning needs at this time. Pt declined CD resources previously. JAVA DEVELOPER ARCHITECT will continue to follow if needs arise. TANESHA Barraza
--- NOTE | 2016-05-19 12:03 | PROG NOTE ---
[address] [address] PROGRESS NOTE PATIENT: MALINDA DUVALL : 1985 MR#: [id number] ADMIT: 05/16/2016 JOB ID: [id number] DATE: 05/19/2016 INFECTIOUS DISEASE FOLLOWUP NOTE: REASON FOR FOLLOWUP: Group A strep infection left greater than right plantar aspect of the feet. INTERVAL HISTORY: The patient feels fine. He denies any fevers, chills, sweats, cough, nausea, vomiting, or diarrhea. He states that the pain on the underside of his left foot is essentially resolved. He has no problem with the right foot. PHYSICAL EXAMINATION: Reveals a comfortable young man in no acute distress. Temp 36.8, pulse 61, respiratory rate 16, blood pressure 129/78. His mental status is clear. His lungs are clear. Abdomen benign. The dressings were removed from the underside of his feet. He has very shallow healing lesions underneath his left foot which appear entirely uninfected. On his right foot there is really nothing to be seen. It is benign. LABORATORIES: Include a dropping white count to 18,000. His creatinine 0.74. Hep C negative. HIV negative. Micro positive for group A strep from the debrided shallow ulcers on the feet. IMPRESSION AND RECOMMENDATIONS: This patient has isolated group A streptococcus infection of the feet. These are essentially completely resolved at this point, and he could be discharged at any time on oral cephalosporin such as Keflex or oral penicillin, so I would give him either amoxicillin 1 g t.i.d. for about a week or Keflex 500 q.i.d. for a week or cefuroxime 500 b.i.d. for a week but the choice does not matter. This case discussed with the team. Infectious Disease will sign off at this time.
--- NOTE | 2016-05-19 12:09 | NUR ---
DISCHARGE Pt dc'd home this morning at 1145, ambulated off unit per his request accompanied by PEREZ Simmons. VSS, A&O, denies any pain and in no apparent distress. IV had become dislodged in the NOC. All belongings returned. All instructions for diet, activity, medications, prescriptions, wound care and follow up reviewed with patient who reports understanding.
--- NOTE | 2016-05-19 17:57 | PCM.DC.MED ---
Discharge Summary Date of Service May 19, 2016 Dates of Hospitalization Date of Hospital Admission May 16, 2016 at 06:18 Date of Discharge: May 19, 2016 Providers: Admitting Physician: Randy Moore MD Primary Care Physician: Nopcp Attending Physician: Randy Moore MD Diagnosis at Time of Discharge Diagnosis at Time of Discharge Acute Left Plantar abscess s/p I&D on 05/17, present on admission, ongoing Acute asthma exacerbation, present on admission Acute opiate intoxication, present on admission, acute Acute hypoxic and hypercapnic respiratory failure, present on admission, stable Leukocytosis, present on admission, acute Polysubstance abuse, present on admission, acute on chronic Consultations Podiatry Infectious Disease Procedures XRay, CTs & MRIs X-RAY CHEST ONE VIEW, PORTABLE ([id number]) IMPRESSION: No acute cardiopulmonary disease. Dictated by: Jones AMANDA Interpreted: Destiny Jhaveri MD on 05/16/2016 at 8:46 Transcribed by: PB on 05/16/2016 at 8:[address] with con IMPRESSION: Normal left foot contrast-enhanced CT. No evidence for left foot abscess. Other Diagnostics ABG DateTimeAnalyzed 06:24:00 -_ pH ____7.357 - 7.350 7.450 pCO2 ___46.5__ -mmHg 35.0 45.0 pO2 147 -mmHg 69.0 116 HCO3- ___25.4__ -mmol/L 22.0 26[address] Bay's H and P: "Norm Hayes is a 30-year-old man with past medical history remarkable for polysubstance abuse as well as asthma who presents to the [facility] emergency Department with acute shortness of breath. Notes from the ED indicate that this patient had significant dyspnea for several hours. The patient states that over the last several days he had been coughing up green sputum. He denies any fever or chills, chest pain, sore throat or general sense of being sick. The patient denies any burning on urination, any joint pain, or discharge from his penis. The patient initially denied taking any substances prior to coming into the emergency department. After administering Narcan due to patient's somnolence the patient admitted to taking oxycodone recently. Records indicate that on 04/24/2016 he was seen for an opiate overdose. And last year he had an asthma exacerbation with severe bronchospasms after smoking heroin. The patient continually denies drinking alcohol. On toxicology screen not performed in the emergency department the patient tested positive for opiates and amphetamines." Hospital Course Norm Hayes 30-year-old man with past medical history remarkable for polysubstance abuse, and asthma exacerbation secondary to smoking recreational drugs who presents to [facility] emergency Department with acute worsening shortness of breath and left foot abscess # Acute Left Plantar abscess s/p I&D on 05/17, present on admission, ongoing - Patient did meet SIRS criteria, but Tachycardia and tachypnea at admission may have been secondary to dyspnea from asthma exacerbation - Left foot is likely source of leukocytosis of 19k on admission - CT of left foot performed, but not well visualized - Vancomycin and Ceftriaxone initiated 05/16 on admission, titrated down to just IV Ceftriaxone - blood cx neg x 48, tissue cultures growing Grp A Strep - Patient is s/p I&D with Dr. Valdez, podiatry. Tissue culture results as above. Awaiting JEAN MARIE # Acute asthma exacerbation, present on admission - Likely secondary to inhalation of heroin and/or amphetamine smoke - Solu-Medrol initiated on admission, tapered down to oral Prednisone. - DuoNeb's 4 times a day while awake - Albuterol nebulizer every 2 hours as needed for shortness of breath #. Acute opiate intoxication, present on admission, acute - Urine tox screen ordered shows both amphetamines and heroin - Narcan given resulted in acute opiate withdrawals with severe abdominal pain - Clonidine 0.1 mg every 2 hours when necessary - Hydroxyzine by mouth when necessary for patient comfort - Baclofen by mouth for muscle cramps and abdominal discomfort - Patient's withdrawal symptoms have improved, but continue to be somnolent, so will decrease dosing frequency to avoid further somnolence. # Acute hypoxic and hypercapnic respiratory failure, present on admission, stable - secondary to asthma exacerbation as above - noted in the emergency department records he was hypoxic and hypercapnic - Resolved # Leukocytosis, present on admission, acute - This is likely due to steroid administration, but continued to monitor other signs or symptoms of infection - Blood cultures have been negative 48 hours. Respiratory viral PCR negative. UA grew out MUG. # Polysubstance abuse, present on admission, acute on chronic - Narcan given on floor with reversal of somnolence indicate an acute intoxication - Patient had limited visitors and had his personal belongings locked - Encouraged cessation and referral to [facility] - HIV and hepatitis panel negative Exam Vital Signs (Last) Date Time Temp Pulse Resp B/P Pulse Ox O2 Delivery O2 Flow Rate FiO2 05/19/16 05:00 36.8 61 16 129/78 93 Room Air 05/18/16 13:35 2.00 Exam Gen.: Well-developed young male who is somewhat sleepy while laying in bed, otherwise in NAD Eyes: Pupils equal round and reactive to light, anicteric sclera, Neck: Soft, nontender Cardiovascular: Regular rate and rhythm, no murmurs noted Lungs: CTAB, normal resp effort on RA Abdomen: Mildly tender to palpation diffusely, soft, nondistended, no masses palpated but no rashes noted Extremities: BLE wrapped in compressive bandaging, able to move all toes with sensation intact. Skin: Numerous tattoos, warm and dry, no rashes noted : No Mckeon in place Neuro: Somnolent, but improved today. More responsive. Alert and oriented. Psych: Flat affect and depressed mood Test 05/16/16 05:25 05/16/16 07:31 05/16/16 11:45 05/17/16 00:10 Magnesium Level 2.1mg/dL (1.6-2.6) Troponin T 0.010ug/L (0.0-0.011) Urine Color Yellow (YELLOW) Urine Appearance Hazy (CLEAR,HAZY) Urine pH 6.0 (5.0-8.0) Urine Specific [place] 1.010 (1.003-1.035) Urine Protein Negativemg/dL (NEG,TRACE) Urine Glucose (UA) Negativemg/dL (NEGATIVE) Urine Ketones Negativemg/dL (NEGATIVE) Urine Occult Blood Trace (NEGATIVE) Urine Nitrite Negative (NEGATIVE) Urine Bilirubin Negative (NEGATIVE) Urine Urobilinogen Normalmg/dL (NORMAL) Urine Leukocyte Esterase Trace (NEGATIVE) Urine RBC 0-2/hpf (0-2) Urine WBC 6-10/hpf (0-5) Urine Epithelial Cells Occasional/hpf (NONE-MOD) Urine Crystals None seen (NONE SEEN) Urine Bacteria Few/hpf (NONE-FEW) Urine Hyaline Casts None/lpf (NONE) Urine Granular Casts None seen (NONE SEEN) Urine Waxy Casts None seen (NONE SEEN) Urine Red Blood Cell Casts None seen (NONE SEEN) Urine White Blood Cell Casts None seen (NONE SEEN) Urine Mucus None seen (None Seen) Urine Trichomonas None seen (NONE SEEN) Urine Yeast None (NONE SEEN) Urinalysis Comment None Urine Culture Reflexed Indicated Urine Opiates Screen Positive Urine Methadone Screen Negative Urine Barbiturates Screen Negative Urine Amphetamines Screen Positive Urine Benzodiazepines Screen Negative Urine Cocaine Metabolite Screen Negative Urine Cannabinoids Screen Negative Urine Legionella pneumophilia Ag Negative (Negative) Hepatitis A IgM Antibody Negative (Negative) Hepatitis B Surface Antigen Negative (Negative) Hepatitis B Core IgM Antibody Negative (Negative) Hepatitis C Antibody <0.1s/co ratio (0.0-0.9) Hepatitis C Comment Comment (.) HIV (1&2) Ag and Ab, 4th Generation Non reactive (Non Reactive) Hold [place] Top Tube Received (Received) Hold [place] Top Tube Received (Received) Test 05/17/16 06:00 05/18/16 06:29 05/18/16 10:45 05/19/16 05:50 Erythrocyte Sedimentation Rate 17mm/hr (0-15) Total Bilirubin 0.2mg/dL (0.0-1.2) Aspartate Amino Transf (AST/SGOT) 18U/L (0-50) Alanine Aminotransferase (ALT/SGPT) 14U/L (0-44) Alkaline Phosphatase 78U/L (25-150) Total Protein 7.4g/dL (6.4-8.4) Albumin 3.1g/dL (3.4-5.0) C-Reactive Protein 0.4mg/dL (0.0-0.5) Vancomycin Level Trough 7.7mcg/mL White Blood Count 18.3th/mm3 (3.8-10.1) Red Blood Count 4.98mil/mm3 (4.40-5.80) Hemoglobin 13.5g/dL (13.8-17.2) Hematocrit 39.8% (41.0-50.0) Mean Corpuscular Volume 79.9fL (81-100) Mean Corpuscular Hemoglobin 27.1pg (27.0-35.0) Mean Corpuscular Hemoglobin Concent 33.9% (32.0-37.0) Red Cell Distribution Width 14.2% (12.3-15.4) Platelet Count 396bil/L (150-400) Neutrophils (%) (Auto) 59.9% (40-74) Lymphocytes (%) (Auto) 28.4% (14-46) Monocytes (%) (Auto) 9.4% (4-12) Eosinophils (%) (Auto) 0.4% (0-5) Basophils (%) (Auto) 0.3% (0-3) Sodium Level 143mEq/L (134-144) Potassium Level 3.8mEq/L (3.5-5.2) Chloride Level 106mEq/L (97-108) Carbon Dioxide Level 22mmol/L (18-29) Blood Urea Nitrogen 15mg/dL (6-20) Creatinine 0.74mg/dL (0.76-1.27) Estimat Glomerular Filtration Rate 131mL/min (>59) Glucose Level 98mg/dL (60-99) Calcium Level 9.1mg/dL (8.5-10.1) Procalcitonin 0.04ng/mL (0.00-0.08) Discharge Medications Discharge Medications Amoxicillin/Clav K 500-125 mg (Augmentin 500) 1 Tab Tab 1 TABLET PO BID Prescribed by: RONNY ISAAC DO Baclofen (Baclofen) 10 Mg Tablet 20 MG PO BID Prescribed by: RONNY ISAAC DO As needed Albuterol HFA (Proair HFA) 8.5 Gm Hfa.aer.ad 2 PUFFS INHALATION Q4H PRN PRN For Shortness of Breath (Reported) Clonidine (Catapres) 0.1 Mg Tablet 0.1 MG PO Q2H PRN PRN Withdrawal Symptoms Prescribed by: RONNY ISAAC DO Hydroxyzine Pamoate (HydrOXYzine Pamoate) 25 Mg Capsule 25 MG PO Q4H PRN PRN Withdrawal Symptoms Prescribed by: RONNY ISAAC DO Nicotine 14 mg/24 hr Patch (Nicotine 14 mg/24 hr Patch) 1 Each Patch.td24 1 PATCH TOPICAL DAILY PRN PRN For Tobacco Withdrawal Prescribed by: RONNY ISAAC DO Additional med instructions You will be given scripts for the medications you were using here to help with withdrawal symptoms. Please use them as instructed on the scripts. You will also need to finish 7 days of antibiotic pills. Followup Plan Disposition: home Discharge Diet: No restrictions Discharge Activity: Limited until seen by PCP Patient Instructions Please follow up with the residency clinic in about 1-2 weeks. You will need to establish care with a PCP. Follow-up Provider: Naeem Armenta DO Follow-up with PCP in: 2 weeks Time spent 35 minutes Attending Statement The patient was seen and examined independently on 05/19/2016 and case discussed with , I agree with the discharge summary as outlined in the note above. copies to: Naeem Armenta Viktoriya DO May 19, 2016 17:56 Garret Parrish MD May 19, 2016 20:08
== END 2016-05-19 11:45 | disposition home or self-care (01) | DRG 602 ==
LOC: SED 05:04 → PCC 06:18 → MPC 05-17 00:19
PROVIDERS: ADMIT Hospitalist; ATTEND Hospitalist
PROC: 4A033R1 Measurement of Arterial Saturation, Peripheral, Percutaneous Approach (ICD-10-PCS; 2016-05-16)
PROC: 0HDNXZZ Extraction of Left Foot Skin, External Approach (ICD-10-PCS; 2016-05-17)
PROC: 0H9NXZX Drainage of Left Foot Skin, External Approach, Diagnostic (ICD-10-PCS; principal; 2016-05-17 17:00)
DX: L02.612 Cutaneous abscess of left foot (principal); J96.01 Acute respiratory failure with hypoxia; J96.02 Acute respiratory failure with hypercapnia; J45.901 Unspecified asthma with (acute) exacerbation; B95.0 Streptococcus, group A, as the cause of diseases classified elsewhere; D72.829 Elevated white blood cell count, unspecified; B35.3 Tinea pedis; F17.210 Nicotine dependence, cigarettes, uncomplicated; Z86.14 Personal history of Methicillin resistant Staphylococcus aureus infection; F11.929 Opioid use, unspecified with intoxication, unspecified; F19.10 Other psychoactive substance abuse, uncomplicated

== ENCOUNTER 2016-05-30 08:45 | Emergency (ER) | payer OTHER ==
[~2016-05-30] VITALS: Ht 175.3 cm; Wt 79.5 kg
[~2016-05-30 08:45] MED LIST changes: +ALBU8.5H2 INHALATION; +AMOX1TAB11 PO; -AMOX500T2 PO; +BACL10TA PO; +CLON0.1T14 PO; +HYDR-3797 PO; -HYDR-4003 PO; -LORA-302 PO; +NICO1PAT5 TOPICAL; -OMEP20TA24 PO; -ONDA4TAB9 PO
[2016-05-30 08:49] VITALS: PULSE 125; O2SAT 95
[2016-05-30] MEDS ORDERED: Albuterol-Ipratropium 3 mL Inhalation Solution ONE (08:50)
[2016-05-30] MEDS ORDERED: Albuterol 2.5 mg/3 mL Inhalation Solution NEB ONE ×2 (08:50→09:00)
--- NOTE | 2016-05-30 08:50 | ED.REPORT ---
HPI-Dyspnea / Wheezing Date of Service May 30, 2016 ED Provider: Dr. 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 He is non verbal on arrival. Per patient's fiance, he was wheezing last night and it was difficult for him to sleep due to trouble breathing. Yesterday, the pt was playing basketball and he had to sit down and lay in the grass to catch his breath. He had asthma when he was a child but has not been treated for it as an adult. He was seen at the ED for similar symptoms 2.5 weeks ago. He smokes cigarettes. Nursing Notes Stated Complaint: DIFFICULTY BREATHING Chief Complaint: Respiratory Distress Nursing Notes Reviewed: Yes Allergies: Coded Allergies: No Known Allergies (Verified Allergy, Unknown, 05/16/16) Scheduled Albuterol HFA (Proair HFA) 8.5 Gm Hfa.aer.ad 2 PUFFS INHALATION Q4H Amoxicillin/Clav K 500-125 mg (Augmentin 500) 1 Tab Tab 1 TABLET PO BID Baclofen (Baclofen) 10 Mg Tablet 20 MG PO BID Prednisone (PredniSONE) 20 Mg Tablet 40 MG PO DAILY Scheduled PRN Albuterol HFA (Proair HFA) 8.5 Gm Hfa.aer.ad 2 PUFFS INHALATION Q4H PRN PRN For Shortness of Breath Clonidine (Catapres) 0.1 Mg Tablet 0.1 MG PO Q2H PRN PRN Withdrawal Symptoms Hydroxyzine Pamoate (HydrOXYzine Pamoate) 25 Mg Capsule 25 MG PO Q4H PRN PRN Withdrawal Symptoms Nicotine 14 mg/24 hr Patch (Nicotine 14 mg/24 hr Patch) 1 Each Patch.td24 1 PATCH TOPICAL DAILY PRN PRN For Tobacco Withdrawal General Time Seen by MD: 08:50 Chief Complaint Shortness of breath Hx Obtained From: Spouse Arrived By: Walk-in Sudden in Onset?: Yes Onset Occurred: 5 - 8 hours ago Symptom Duration: Since onset Recent Healthcare: Recent doctor visit Similar Sx Previous: Yes Past Medical History Past Medical History MRSA history of bronchospasm after smoking heroin heroin overdose Reports: Asthma Past Surgical History denies Family History Noncontributory Smoking History Current Every Day Smoker Social History Alcohol Use: Denies alcohol use Drug Use: Meth, Other Other Social History: Good social support, Occupation no work, no school, lives with girlfriend 11/2014 Ambulatory Status Independent Review of Systems Respiratory: Reports: Non-productive cough, Shortness of breath Complete sys rev & neg: except as marked. Physical Exam Initial Vital Signs Vital Signs (First) Date Time Temp Pulse Resp B/P Pulse Ox O2 Delivery O2 Flow Rate FiO2 05/30/16 08:49 125 95 05/30/16 09:03 20 Room Air 05/30/16 09:13 36.5 137/97 Initial VS: Reviewed Head / Eyes: Atraumatic, Normocephalic, PERRL ENT: Mucous membranes moist, Conjunctiva normal Abdomen / GI: Soft, Non-tender, No guarding, No rebound Extremities: Vascular intact, Neuro intact, No swelling Skin: Warm, Dry General/Constitutional: Awake Distress / Hydration: Positive: Distress moderate non verbal on arrival Neck: Atraumatic, Supple Resp Distress / Stridor: Positive: Resp distress moderate Wheezing / Retractions: Positive: Wheeze insp/exp diffuse Cardiovascular: Regular rhythm Heart Rate / Rhythm: Positive: Tachycardia Interpretation & Diagnostics Lab Results Interpretation Result Diagram: 05/30/16 0900 05/30/16 0900 Test 05/30/16 09:00 White Blood Count 18.0th/mm3 (3.8-10.1) Red Blood Count 5.68mil/mm3 (4.40-5.80) Hemoglobin 15.3g/dL (13.8-17.2) Hematocrit 45.7% (41.0-50.0) Mean Corpuscular Volume 80.5fL (81-100) Mean Corpuscular Hemoglobin 26.9pg (27.0-35.0) Mean Corpuscular Hemoglobin Concent 33.5% (32.0-37.0) Red Cell Distribution Width 14.8% (12.3-15.4) Platelet Count 338bil/L (150-400) Neutrophils (%) (Auto) 66.7% (40-74) Lymphocytes (%) (Auto) 18.0% (14-46) Monocytes (%) (Auto) 6.4% (4-12) Eosinophils (%) (Auto) 8.4% (0-5) Basophils (%) (Auto) 0.3% (0-3) Sodium Level 140mEq/L (134-144) Potassium Level 4.2mEq/L (3.5-5.2) Chloride Level 99mEq/L (97-108) Carbon Dioxide Level 24mmol/L (18-29) Blood Urea Nitrogen 14mg/dL (6-20) Creatinine 0.95mg/dL (0.76-1.27) Estimat Glomerular Filtration Rate 98mL/min (>59) Glucose Level 100mg/dL (60-99) Calcium Level 9.8mg/dL (8.5-10.1) Total Bilirubin 0.7mg/dL (0.0-1.2) Aspartate Amino Transf (AST/SGOT) 25U/L (0-50) Alanine Aminotransferase (ALT/SGPT) 30U/L (0-44) Alkaline Phosphatase 93U/L (25-150) Troponin T < 0.010ug/L (0.0-0.011) Total Protein 8.3g/dL (6.4-8.4) Albumin 4.3g/dL (3.4-5.0) Hold Hewitt Top Tube Received (Received) ECG Interpretation Time: 09:29 Interpreted by: ED physician Normal ECG Interpretation: Normal sinus rhythm (99) X-Ray Chest Interpretation Chest Xray Interpretation: IMPRESSION: No acute cardiopulmonary disease. Dictated by: Jones Sharpe RRA Interpreted: Destiny Jhaveri MD on 05/30/2016 at 9:48 Transcribed by: PB on 05/30/2016 at 9:48 View: Portable Interpretation / Wet Read by: Interpret - Radiologist Re-Eval/Medical Decision Med Decision/Clinical Course Acute bronchospasm, symptoms seem to have resolved, will treat with steroids and outpatient albuterol. Stable for discharge. Re-Evaluation/Progress : Time of Eval: 09:58 Re-Evaluation/Progress Note: Pt rechecked. His breathing is much improved after breathing treatment. F/U and RTER warnings given. Pt understands and agrees with plan. Counseled Regarding: Diagnosis, Lab results, Need for follow-up, When/why to return to ED Discharge & Departure Impression: Primary Impression: Asthma exacerbation Disposition: Home Discharge Condition All VS Reviewed: Yes Condition: Stable Additional Instructions: Quit smoking, it is very bad for your asthma. I am sending you home with an inhaler. Use 2-4 puffs every hour as needed. Follow up with a primary care physician as needed. Return to the Emergency Department for any new or worsening symptoms. I hope you feel better soon! Referrals: [facility]CP (PCP) Talha Attestation Portion of this note were transcribed by Adilia Coyne. I, Dr. Lopez, personally performed the history, physical exam, and medical decision-making: I reviewed and confirmed the accuracy for the information in the transcribed note. Signed by: talha Allan, 05/30/16 [facility] John Lopez DO May 30, 2016 08:50 Adilia Coyne May 30, 2016 08:55
[2016-05-30] MEDS ORDERED: Albuterol-Ipratropium 3 mL Inhalation Solution NEB ONE (09:00)
[2016-05-30] MEDS ORDERED: MethylprednisoLONE Sodium Succinate 62.5 mg/mL 2 mL Inj IVPUSH ONE (09:00)
[2016-05-30 09:03] VITALS: PULSE 115; RESP 20
[2016-05-30 09:13] VITALS: BP 137/97; PULSE 126; RESP 24; O2SAT 93
[2016-05-30 09:20] LABS: BASOPHILS % (AUTO) 0.3 % (0-3); EOSINOPHILS % (AUTO) 8.4 % (0-5); MONOCYTES % (AUTO) 6.4 % (4-12); Mean Corpuscular Hemoglobin 26.9 pg (27.0-35.0); Mean Corpuscular Volume 80.5 fL (81-100); NEUTROPHILS % (AUTO) 66.7 % (40-74); Platelet Count 338 bil/L (150-400)
--- NOTE | 2016-05-30 09:49 | DRSVH ---
PROCEDURE: X-RAY CHEST, TWO VIEWS ([id number]) INDICATIONS: dyspnea, wheezing TECHNIQUE: 2 views of the chest were acquired. COMPARISON: [facility], CR, XR CHEST 1VW (PORTABLE), 05/16/2016, 5:07. [facility], CR, XR CHEST 2VW, 06/01/2015, 11:03. FINDINGS: Surgical changes and devices: None. Lungs and pleura: No pleural effusions or pneumothorax. Lungs are clear. Mediastinum: Mediastinal contours are normal. Heart size is normal. Bones and chest wall: No suspicious bony abnormalities. Soft tissues appear unremarkable. IMPRESSION: No acute cardiopulmonary disease. Dictated by: Jones Sharpe RRA Interpreted: Destiny Jhaveri MD on 05/30/2016 at 9:48 Transcribed by: PB on 05/30/2016 at 9:48 Approved by: Destiny Jhaveri MD, PhD on 05/30/2016 at 17:18
[2016-05-30 09:51] LABS: TROPONIN T < 0.010 ug/L (0.0-0.011)
[2016-05-30] MEDS ORDERED: ALBU8.5H2 INHALATION (10:03)
[2016-05-30] MEDS ORDERED: PRE20 PO (10:03)
[2016-05-30 10:26] VITALS: BP 134/88; PULSE 93; RESP 22; O2SAT 95
== END 2016-05-30 10:27 | disposition home or self-care (01) ==
LOC: SED 08:45
DX: J45.901 Unspecified asthma with (acute) exacerbation (principal); F17.200 Nicotine dependence, unspecified, uncomplicated; Z86.14 Personal history of Methicillin resistant Staphylococcus aureus infection
CPT/HCPCS: 71020; 80053; 84484; 85025; 93005; 94664; 96374; 99285; J2930; J7620

== ENCOUNTER 2016-08-06 22:52 | Emergency (ER) | payer OTHER ==
[~2016-08-06] VITALS: Ht 175.3 cm; Wt 72.7 kg
[~2016-08-06 22:52] MED LIST changes: +PRE20 PO
[2016-08-06 22:57] VITALS: BP 141/89; PULSE 105; RESP 36; O2SAT 92
[2016-08-06] MEDS ORDERED: Albuterol 2.5 mg/3 mL Inhalation Solution NEB ONE (22:59)
[2016-08-06] MEDS ORDERED: Albuterol-Ipratropium 3 mL Inhalation Solution ONE (22:59)
--- NOTE | 2016-08-06 23:06 | ED.REPORT ---
HPI-General Illness Date of Service Aug 06, 2016 ED Provider: Jack Hinds MD Pt is a 30 y/o male w/ a hx of asthma presenting to the ED via EMS c/o SOB onset today. The patient was running from the police and he began to experience an asthma attack. He has received breathing treatments prior to interview and is feeling better. History is limited from the patient. He reportedly accuses police of assaulting and harassing him. Nursing Notes Stated Complaint: ASTHMA EXACERBATION Chief Complaint: Respiratory Distress Nursing Notes Reviewed: Yes Allergies: Coded Allergies: No Known Allergies (Verified Allergy, Unknown, 05/16/16) Scheduled Albuterol HFA (Proair HFA) 8.5 Gm Hfa.aer.ad 2 PUFFS INHALATION Q4H Amoxicillin/Clav K 500-125 mg (Augmentin 500) 1 Tab Tab 1 TABLET PO BID Baclofen (Baclofen) 10 Mg Tablet 20 MG PO BID Prednisone (PredniSONE) 20 Mg Tablet 40 MG PO DAILY Scheduled PRN Albuterol HFA (Proair HFA) 8.5 Gm Hfa.aer.ad 2 PUFFS INHALATION Q4H PRN PRN For Shortness of Breath Clonidine (Catapres) 0.1 Mg Tablet 0.1 MG PO Q2H PRN PRN Withdrawal Symptoms Hydroxyzine Pamoate (HydrOXYzine Pamoate) 25 Mg Capsule 25 MG PO Q4H PRN PRN Withdrawal Symptoms Nicotine 14 mg/24 hr Patch (Nicotine 14 mg/24 hr Patch) 1 Each Patch.td24 1 PATCH TOPICAL DAILY PRN PRN For Tobacco Withdrawal General Time Seen by MD: 22:54 Chief Complaint Breathing problem Hx Obtained From: Patient, EMS Arrived By: Ambulance Sudden in Onset?: Yes Onset Occurred: 1 - 4 hours ago Symptom Duration: Since onset Severity: Current: No pain currently Severity: Maximum: No pain Past Medical History Past Medical History MRSA history of bronchospasm after smoking heroin heroin overdose Hx abscess Hx kidney stone Reports: Asthma Past Surgical History denies Family History Noncontributory Smoking History Current Every Day Smoker Social History Alcohol Use: Denies alcohol use Drug Use: Meth, Other Other Social History: Good social support, Occupation no work, no school, lives with girlfriend 11/2014 Ambulatory Status Independent Review of Systems Full Review of Systems Constitutional: Denies: Chills, Fever Respiratory: Reports: Shortness of breath, Wheezing Complete sys rev & neg: except as marked. Physical Exam Vital Signs Vital Signs Date Time Temp Pulse Resp B/P Pulse Ox O2 Delivery O2 Flow Rate FiO2 08/07/16 00:37 36.7 136 25 127/75 91 Room Air 08/06/16 23:55 85 12 93 OxyMask 3 08/06/16 23:14 36.7 68 16 138/81 99 Nasal Cannula 4 08/06/16 23:11 69 14 90 Nasal Cannula 5 08/06/16 22:57 105 36 141/89 92 Nasal Cannula 4 Initial VS: Reviewed, Vital signs abnormal Head / Eyes: Atraumatic, Normocephalic, PERRL ENT: Mucous membranes moist, Conjunctiva normal, No scleral icterus Neck: Supple, Full range of motion Cardiovascular: Regular rate & rhythm, Heart sounds normal, Intact distal pulses Extremities: Vascular intact, Neuro intact, No swelling Skin: Warm, Dry, No cyanosis Neurologic: Alert, Oriented, Nonfocal Psychiatric: Mood/affect normal, Behavior normal, Normal thought content General/Constitutional: Awake, Alert, No acute distress, Cooperative, Not toxic appearing Respiratory / Chest: Atraumatic, No respiratory distress, No retractions, No stridor, No chest tenderness, No chest wall deformity, No crepitus Coarse breath sounds throughout Scattered expiratory wheezing Interpretation & Diagnostics X-Ray Chest Interpretation View: Portable, 1 view Interpretation / Wet Read by: Wet read ED physician NL X-Ray Chest Findings: No infiltrate, No acute disease Re-Eval/Medical Decision Med Decision/Clinical Course Pt is a 30 y/o male w/ a hx of asthma presenting to the ED via EMS c/o SOB onset today. The patient was running from the police and he began to experience an asthma attack. He has received breathing treatments prior to interview and is feeling better. History is limited from the patient. He reportedly accuses police of assaulting and harassing him. Upon arrival to the emergency department the patient is initially tachycardic but this quickly resolved. He was treated with a DuoNeb as well as a dose of prednisone as he does have some scattered expiratory wheezing. Of note he appears to be embellishing his symptoms and when I go to listen to his lungs he seems to be purposely making loud upper airway noises though he does not appear in any significant respiratory distress. Chest x-ray demonstrated no focal pneumonia, pneumothorax, rib fractures or evidence of an acute cardiopulmonary process. I suspect that he is experiencing a mild asthma exacerbation in the setting of intense exercise in an attempt to evade the police. I have prescribed albuterol MDI with spacer as well as 5 days of prednisone. At this time, I feel that he is appropriate for discharge to police custody. Follow-up and return precautions were reviewed in detail with the patient as well as provided in writing. He was discharged in stable condition. Time of Eval: 00:25 Re-Evaluation/Progress Note: Pt rechecked. Informed pt of plan for treatment. Pt understands and agrees with plan for treatment. F/U instructions and RTER warnings given. All questions addressed. Counseled Regarding: Diagnosis, Need for follow-up, When/why to return to ED Discharge & Departure Primary Impression: Asthma exacerbation Additional Impressions: Malingering Wheezing Respiratory distress Disposition: Home Discharge Condition All VS Reviewed: Yes Condition: Stable Additional Instructions: Thank you for seeking care at the emergency room. It is difficult for us to make definitive diagnoses in the ED but we believe that you are experiencing an asthma exacerbation after running from the police. Our primary goal today in the ED was to evaluate you for any life-threatening conditions. Your evaluation was reassuring. You will be discharged with a prescription for prednisone and an inhaler. You should follow-up with your primary doctor in the next week. You should return to the ED immediately if you develop any worsening symptoms, fevers, vomiting, cough, shortness of breath, chest pain, lightheadedness, weakness or any other concerning signs or symptoms. Thank you for letting us partake in your care today. Referrals: [facility] Scribe Attestation Portions of this note were transcribed by Iam Funes. I, Dr. Hinds, personally performed the history, physical exam and medical decision-making; I reviewed and confirmed the accuracy of the information in the transcribed note. Signed by Alisia Ponce, 08/06/16 - 1451 Jack Hinds MD Aug 06, 2016 23:06 IAM FUNES Aug 06, 2016 23:28
[2016-08-06 23:11] VITALS: PULSE 69; RESP 14; O2SAT 90
[2016-08-06 23:14] VITALS: BP 138/81; PULSE 68; RESP 16; O2SAT 99
[2016-08-06] MEDS ORDERED: Albuterol-Ipratropium 3 mL Inhalation Solution NEB ONE (23:30)
[2016-08-06] MEDS ORDERED: predniSONE 20 mg Tablet PO ONE (23:30)
[2016-08-06] MEDS ORDERED: _Proair 200 Puff/8.5 GM Inhaler INHALATION PRN (23:40)
[2016-08-06 23:55] VITALS: PULSE 85; RESP 12; O2SAT 93
[2016-08-07 00:37] VITALS: BP 127/75; PULSE 136; RESP 25; O2SAT 91
[2016-08-07] MEDS ORDERED: _PredniSONE 10 mg Tablet PO SCH (08:00)
--- NOTE | 2016-08-07 08:00 | DRSVH ---
PROCEDURE: X-RAY CHEST, TWO VIEWS ([id number]) INDICATIONS: sob TECHNIQUE: 2 views of the chest were acquired. COMPARISON: [facility], CR, XR CHEST 2VW, 05/30/2016, 9:09. FINDINGS: Surgical changes and devices: None. Lungs and pleura: No pleural effusions or pneumothorax. Lungs are clear. Mediastinum: Mediastinal contours are normal. Heart size is normal. Bones and chest wall: No suspicious bony abnormalities. Soft tissues appear unremarkable. IMPRESSION: No acute disease Dictated by: Doyle Montez M.D. on 08/07/2016 at 7:57 Approved by: Dolye Montez M.D. on 08/07/2016 at 7:58
== END 2016-08-07 00:35 | disposition home or self-care (01) ==
LOC: SED 22:52
DX: J45.901 Unspecified asthma with (acute) exacerbation (principal); F17.200 Nicotine dependence, unspecified, uncomplicated; Z76.5 Malingerer [conscious simulation]
CPT/HCPCS: 71020; 94640; 94664; 99284; J7613; J7620